=== PATIENT | female | born 1950 | race Caucasian/White ===

== ENCOUNTER → 2016-11-10 | Outpatient (CLI) | payer OTHER, MEDICARE ==
[~2016-11-10] MED LIST: ATEN-173 PO; CETI10TA10 PO; EFFSR150 PO; LPT/40 PO; LSN/10125 PO; OMEP20CA59 PO
[2016-11-10 12:24] LABS: BASO % 0.4 %; BASO ABS # 0.03 K/uL (0-0.2); COMPLETE YES; EOS % 1.3 %; HEMATOCRIT 40.3 % (37-47); IG% 0.4 %; LYMPH % 34.8 %; LYMPH ABS # 2.94 K/uL (1.2-3.4); MEAN CELL VOLUME 93.7 fL (80-100); MEAN CORPUSCULAR HEMOGLOBIN 30.5 pg (25-34); MEAN CORPUSCULAR HGB CONC 32.5 g/dl (32-36); MEAN PLATELET VOLUME 11.5 fL (7.4-10.4); MONO % 6.7 %; NEUT % 56.4 %; PLATELET COUNT 257 K/uL (130-400); WHITE BLOOD COUNT 8.45 K/uL (4.8-10.8)
[2016-11-10 13:05] LABS: ALKALINE PHOSPHATASE 61 U/L (45-117); ALT/SGPT 33 U/L (12-78); AST/SGOT 25 U/L (15-37); BLOOD UREA NITROGEN 44 mg/dl (7-18); BUN/CREATININE RATIO 33.9 (10-20); CARBON DIOXIDE 22 mmol/L (21-32); CHLORIDE 110 mmol/L (98-107); CHOLESTEROL 223 mg/dl (0-200); GLUCOSE 94 mg/dl (70-99); POTASSIUM 4.8 mmol/L (3.5-5.1); SODIUM 140 mmol/L (136-145); TRIGLYCERIDES 102 mg/dl (0-150); VERY LOW DENSITY LIPOPROT CALC 20 mg/dl
[2016-11-10 13:12] LABS: CALCIUM 9.1 mg/dl (8.5-10.1); CHOLESTEROL/HDL RATIO 3.8; HDL CHOLESTEROL 59 mg/dl; LDL CHOLESTEROL CALCULATED 144 mg/dl
[2016-11-10 13:20] LABS: ESTIMATED AVERAGE GLUCOSE 131 mg/dl; HA1C FLAG Normal (Normal)
--- NOTE | 2016-11-16 10:12 | CODING QUERY MEDICAL NECESSITY ---
SUPPORTING DIAGNOSIS NEEDED Dr. Abraham, A supporting diagnosis is required for the test/procedure performed on this patient in order for us to be reimbursed by the patient's insurance. Please provide a supporting diagnosis for the following test/procedure listed below next to the test name along with your signature. *If there is no additional diagnosis for this patient that would support the following test/procedure please document that below next to the test/procedure. Test(s)/Procedure(s) that require a supporting diagnosis: * 06642 GLYCATED HEMOGLOBIN DIAGNOSIS: DATE OF SERVICE: 11/10/16 Provider Signature: Date: Thank you Yonathan Barnard [facility] Information Management Once completed, please kindly fax back to [phone] For questions please call [phone]
== END | disposition home or self-care (01) ==
LOC: C.LABPBG 08:29
PROVIDERS: ATTEND Internal Medicine
DX: E55.9 Vitamin D deficiency, unspecified (principal); R73.01 Impaired fasting glucose

== ENCOUNTER → 2017-04-17 | Outpatient (CLI) | payer OTHER, MEDICARE ==
[2017-04-17 12:10] LABS: BLOOD UREA NITROGEN 32 mg/dl (7-18); BUN/CREATININE RATIO 28.5 (10-20); CALCIUM 9.6 mg/dl (8.5-10.1); CARBON DIOXIDE 25 mmol/L (21-32); CHLORIDE 107 mmol/L (98-107); CREATININE 1.12 mg/dl (0.60-1.20); GLUCOSE 85 mg/dl (70-99); POTASSIUM 4.7 mmol/L (3.5-5.1); SODIUM 138 mmol/L (136-145)
== END ==
LOC: C.LABPBG 09:48
PROVIDERS: ATTEND Internal Medicine
DX: N28.9 Disorder of kidney and ureter, unspecified (principal)

== ENCOUNTER → 2017-06-07 | Outpatient (CLI) | payer OTHER, MEDICARE | END | disposition home or self-care (01) | LOC: C.PATHSPEC 16:03 | PROVIDERS: ATTEND Physician Assistant | DX: L82.1 Other seborrheic keratosis (principal) ==

== ENCOUNTER → 2017-06-20 | Outpatient (CLI) | payer OTHER, MEDICARE ==
[2017-06-20 13:21] LABS: BLOOD UREA NITROGEN 18 mg/dl (7-18); CALCIUM 9.1 mg/dl (8.5-10.1); CARBON DIOXIDE 26 mmol/L (21-32); CREATININE 1.01 mg/dl (0.60-1.20); GLUCOSE 95 mg/dl (70-99); POTASSIUM 4.1 mmol/L (3.5-5.1); SODIUM 141 mmol/L (136-145)
== END | disposition home or self-care (01) ==
LOC: C.LABPBG 08:38
PROVIDERS: ATTEND Internal Medicine
DX: I10 Essential (primary) hypertension (principal)

== ENCOUNTER 2019-07-16 12:15 | Inpatient (IN) ==
--- NOTE | 2019-07-16 13:05 | XRay Report ---
XR chest 1V portable CLINICAL HISTORY: Dyspnea COMPARISON STUDY: 06/02/2019 dyspnea FINDINGS: 06/02/2019 IMPRESSION: Negative chest. ACT 112: Negative or not required by law. The above report was generated using voice recognition software. It may contain grammatical, syntax or spelling errors. Electronically signed by: Diogenes Lara M.D. 07/16/2019 1:04 PM
[2019-07-16 13:50] LABS: Allen Test Pos (Pos); HCO3 ABG 26 mmol/L (19-24); Oxygen Saturation ABG 94.2 % (90-95); PCO2 ABG 37 mmHg (35-46); PO2 ABG 109 mmHg (80-95); pH ABG 7.46 (7.35-7.45)
[2019-07-16 14:17] LABS: Basophils # (auto) 0.03 K/uL (0-0.2); Basophils % (auto) 0.4 %; Eosinophils % (auto) 2.8 %; Hematocrit (blood only) 37.5 % (37-47); Hemoglobin 11.6 g/dL (12.0-16.0); Immature Granulocytes # (auto) 0.02 K/uL (0.00-0.02); Immature Granulocytes % (auto) 0.3 %; Lymphocytes # (auto) 1.06 K/uL (1.2-3.4); Mean Corpuscular Hgb Conc 30.9 g/dL (32-36); Mean Corpuscular Volume 96.9 fL (80-100); Mean Platelet Volume 10.7 fL (7.4-10.4); Monocytes # (auto) 0.68 K/uL (0.11-0.59); Monocytes % (auto) 9.6 %; Neutrophils # (auto) 5.06 K/uL (1.4-6.5); Neutrophils % (auto) 71.9 %; Platelet Count 276 K/uL (130-400); RDW Coefficient of Variation 14.6 % (11.5-14.5); RDW Standard Deviation 50.1 fL (36.4-46.3); Red Blood Count 3.87 M/uL (4.2-5.4); White Blood Count 7.05 K/uL (4.8-10.8)
--- NOTE | 2019-07-16 14:22 | Emergency Department Note ---
Entered by Lisbeth Cleary acting as a scribe for Brodie Leonard MD ED Provider Note CHIEF COMPLAINT: Shortness of breath HISTORY OF PRESENT ILLNESS: The patient is a 69 year old female who presents to the Emergency Room with comp laints of persistent shortness of breath starting 1 week ago. The patient reports that she is short of breath. She states that her shortness of breath is worse in the morning when she wakes up. She explains that she is severely weak in the mornings. She notes that her often gets chills in the evening. She states that she had a headache last night. She adds that her oxygen saturation last night was 78% and that [employer] today it was 85% on room air. The patient reports that she is pale and thinks that she looks slightly yellow. She states that she had a CTA of her chest done yesterday. She explains that she had outpatient ab work done 5 days ago and believes that it was normal for her. She notes that she has a glioblastoma and receives radiation and chemotherapy specifically Temozolomide daily. She adds that she is following with Dr. Banegas oncologist for her cancer. The patient reports that she began radiation and chemotherapy for about 1.5 weeks ago. She states that she had about 85% of the visible portion of her glioblastoma removed in [place]. She notes that she follows with a [facility] PCP. Pt denies LOC, fevers, diaphoresis, visual changes, neck pain, chest pain, nausea, vomiting, abdominal pain, back pain, melena, hematochezia, urinary symptoms, numbness, lymphadenopathy, rash, or other complaints. REVIEW OF SYSTEMS: See HPI for pertinent positives and negatives. A total of ten systems were reviewed and were otherwise negative. PMHx/PSHx: See pertinent medical and surgical history lists. SOCIAL HISTORY: Patient lives at home. . Never smoker. PHYSICAL EXAM: GENERAL: Awake, alert, well-appearing, in no distress HENT: Normocephalic, atraumatic. Oropharynx unremarkable. EYES: PERRL. Normal conjunctiva. Sclera non-icteric. NECK: Inspection normal. Non-tender. Supple. No nuchal rigidity. FROM. No masses. RESPIRATORY: Clear to auscultation. No wheezes. No rales. Normal respiratory e ffort. CARDIAC: Normal rate. Normal rhythm. No murmurs. No rubs. Extremities warm and well perfused. Pulses equal. No JVD. GI: Soft, non-distended. No tenderness to palpation. No rebound or guarding. No masses. RECTAL: Deferred. MUSCULOSKELETAL: Atraumatic. Chest examination reveals no tenderness. The back is symmetrical on inspection without obvious abnormality. There is no CVA tenderness to palpation. No joint edema. LOWER EXTREMITIES: Calves are equal size bilaterally and non-tender. No edema. No discoloration. NEURO: Normal sensorium. No sensory or motor deficits noted. SKIN: Pale. No rash or jaundice noted. EMERGENCY DEPARTMENT COURSE: 1227: Past medical records reviewed. The patient was evaluated in room B5, and a complete history and physical examination were performed. 1400: I reevaluated the patient at this time. Stable 1545: Discussed case with Dr. Prasad of internal medicine. She will evaluate for further management. Patient reassessed and is stable. Feeling better after supplemental oxygen. MEDICAL DECISION MAKING: Prior records/ancillary studies reviewed. The patient had a negative CT PE study. Laboratory testing from 5 days ago did not reveal any significant abnormalities. Triage Nursing notes reviewed and agree them. Additional history obtained from the family. The patient's history was concerning for hypoxia, weakness, and shortness of breath. Differential diagnosis: Etiologies such as pneumonia, COPD, reactive airway disease, CHF, cardiac ischemia, pulmonary embolism, pneumothorax, musculoskeletal, infections, gastrointestinal, as well as others were entertained. Physical examination: As above. The patient had a pulse oximetry down into the 88% range. Responded well to supplemental nasal cannula oxygen. ER treatment provided: Supplemental oxygen On reassessment the patient felt better. Diagnostic interpretation by me: The electrocardiogram was negative for pathologic change. The labs revealed a mild anemia on CBC but not significantly different than prior. ABG did not reveal any gross abnormalities. Troponin and BNP negative. Imaging studies: Chest x-ray negative. The patient has hypoxia. She is doing better with supplemental oxygen. The exact etiology is not known at this time. Consultation: A consultation was placed with the hospitalist. The case was discussed and diagnostics were reviewed. The patient was evaluated in the ER for further tr eatment. IMPRESSION: Hypoxia, Weakness PLAN: Admitted The scribe's documentation has been prepared under my direction and personally reviewed by me in its entirety. I confirm that the note above accurately refl ects all work, treatment, procedures, and medical decision making performed by me. Impression & Plan Hypoxia, Weakness Past Med/Surg History Medical History Acid reflux Acute renal insufficiency Anxiety Arthritis Chronic sinusitis Depression GBM (glioblastoma multiforme) 06/06/2019 Glaucoma HTN (hypertension) Hyperlipidemia Mitral valve prolapse syndrome Obsessive compulsive disorder Osteoporosis Prediabetes Psoriasis Seasonal allergies Vitamin D deficiency Surgical History H/O total hysterectomy with bilateral salpingo-oophorectomy (BSO) History of appendectomy Hx of cataract surgery Bilateral S/P craniotomy (06/06/19) Left craniotomy with mass resection, Dr. Grimaldo at [facility] S/P hip arthroscopy Right hip, bursectomy Left hip, bursectomy S/P tonsillectomy Family History Mother , 81yo COPD (chronic obstructive pulmonary disease) Osteoporosis Father , 66yo Cardiac disorder Prostate cancer Myocardial infarction Grandfather (Maternal) Diabetes Son Prediabetes Brother No problems noted. Brother No problems noted. Sister No problems noted. Sister No problems noted. Sister No problems noted. Son Hypertension Daughter No problems noted. 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 Feels Safe at Home: Yes Smoking Status: Never smoker Hx Alcohol Use: No Hx Substance Use: No Childhood Exposure to Second-Hand Smoke: No caffeine: Yes (2 cups/day) during the past year weight has: remained stable Dental Care, Regularly: Yes Physical Activity Frequency: Does not Exercise Seatbelt Use: always Sunscreen Use: Yes Results & Data Vital Signs Vital Signs - 24 hr 07/16/19 12:21 07/16/19 12:38 07/16/19 14:03 Temperature 36.9 C Temperature Source Oral Pulse Rate 102 H Pulse Rate [Apical] 82 Respiratory Rate 20 18 Respiratory Effort / Characteristics Non-Labored Respiratory Depth Normal Blood Pressure 110/75 Blood Pressure [Right Arm] Blood Pressure Mean 86 Blood Pressure Mean [Right Arm] Pulse Oximetry 92 90 94 Oxygen Delivery Method Room Air Room Air Nasal Cannula Oxygen Flow Rate 2 Sepsis Recent Fever Within 48 Hours No Sepsis Action Taken by Nursing No Action Required 07/16/19 15:25 07/16/19 15:47 Temperature Temperature Source Pulse Rate Pulse Rate [Apical] 90 100 H Respiratory Rate 18 18 Respiratory Effort / Characteristics Respiratory Depth Normal Blood Pressure Blood Pressure [Right Arm] 170/92 H 141/74 H Blood Pressure Mean Blood Pressure Mean [Right Arm] 118 96 Pulse Oximetry 90 91 Oxygen Delivery Method Nasal Cannula Nasal Cannula Oxygen Flow Rate 2 2 Sepsis Recent Fever Within 48 Hours Sepsis Action Taken by Care Home Medications Current Medication List: was personally reviewed by me Laboratory Data Attestation: I reviewed the patient's lab results. Result diagrams: 07/16/19 14:01 07/16/19 14:01 Lab Results 07/16/19 07/16/19 07/16/19 Range/Units 13:34 13:36 14:01 WBC 7.05 (4.8-10.8) K/uL RBC 3.87 L (4.2-5.4) M/uL Hgb 11.6 L (12.0-16.0) g/dL Hct 37.5 (37-47) % MCV 96.9 (80-100) fL MCH 30.0 (25-34) pg MCHC 30.9 L (32-36) g/dL RDW Std Deviation 50.1 H (36.4-46.3) fL RDW Coeff of Flaca 14.6 H (11.5-14.5) % Plt Count 276 (130-400) K/uL MPV 10.7 H (7.4-10.4) fL Immature Gran % (Auto) 0.3 % Neut % (Auto) 71.9 % Lymph % (Auto) 15.0 % [place] % (Auto) 9.6 % Eos % (Auto) 2.8 % Baso % (Auto) 0.4 % Immature Gran # (Auto) 0.02 (0.00-0.02) K/uL Neut # (Auto) 5.06 (1.4-6.5) K/uL Lymph # (Auto) 1.06 L (1.2-3.4) K/uL [place] # (Auto) 0.68 H (0.11-0.59) K/uL Eos # (Auto) 0.20 (0-0.5) K/uL Baso # (Auto) 0.03 (0-0.2) K/uL PT Cancelled INR Cancelled APTT Cancelled PTT Ratio Cancelled ABG pH 7.46 H (7.35-7.45) ABG pCO2 37 (35-46) mmHg ABG pO2 109 H (80-95) mmHg ABG HCO3 26 H (19-24) mmol/L ABG O2 Saturation 94.2 (90-95) % ABG Base Excess 2.0 H (-9-1.8) mEq/L Jadiel Test Pos (Pos) Barometric Pressure 738.9 mm/Hg Oxygen Given 2 L Sodium (136-145) mmol/L Potassium (3.5-5.1) mmol/L Chloride (98-107) mmol/L Carbon Dioxide (21-32) mmol/L Anion Gap (3-11) BUN (7-18) mg/dl Creatinine (0.6-1.2) mg/dl Est Cr Clr Drug Dosing ml/min Est GFR ( Amer) Est GFR (Non-Af Amer) BUN/Creatinine Ratio (10-20) Glucose (70-99) mg/dl Calcium (8.5-10.1) mg/dl Magnesium (1.8-2.4) mg/dl Total Bilirubin (0.2-1) mg/dl AST (15-37) U/L ALT (12-78) U/L Alkaline Phosphatase (45-117) U/L Troponin I (0-0.045) ng/ml NT-Pro-B Natriuret Pep (0-900) pg/ml Total Protein (6.4-8.2) gm/dl Albumin (3.4-5.0) gm/dl Globulin (2.5-4.0) gm/dl Albumin/Globulin Ratio (0.9-2) Blood Type Antibody Screen 07/16/19 07/16/19 Range/Units 14:01 14:01 WBC (4.8-10.8) K/uL RBC (4.2-5.4) M/uL Hgb (12.0-16.0) g/dL Hct (37-47) % MCV (80-100) fL MCH (25-34) pg MCHC (32-36) g/dL RDW Std Deviation (36.4-46.3) fL RDW Coeff of Flaca (11.5-14.5) % Plt Count (130-400) K/uL MPV (7.4-10.4) fL Immature Gran % (Auto) % Neut % (Auto) % Lymph % (Auto) % [place] % (Auto) % Eos % (Auto) % Baso % (Auto) % Immature Gran # (Auto) (0.00-0.02) K/uL Neut # (Auto) (1.4-6.5) K/uL Lymph # (Auto) (1.2-3.4) K/uL [place] # (Auto) (0.11-0.59) K/uL Eos # (Auto) (0-0.5) K/uL Baso # (Auto) (0-0.2) K/uL PT INR APTT PTT Ratio ABG pH (7.35-7.45) ABG pCO2 (35-46) mmHg ABG pO2 (80-95) mmHg ABG HCO3 (19-24) mmol/L ABG O2 Saturation (90-95) % ABG Base Excess (-9-1.8) mEq/L Jadiel Test (Pos) Barometric Pressure mm/Hg Oxygen Given Sodium 140 (136-145) mmol/L Potassium 4.0 (3.5-5.1) mmol/L Chloride 108 H (98-107) mmol/L Carbon Dioxide 26 (21-32) mmol/L Anion Gap 6.0 (3-11) BUN 15 (7-18) mg/dl Creatinine 1.05 (0.6-1.2) mg/dl Est Cr Clr Drug Dosing 51.0 ml/min Est GFR ( Amer) 62.8 Est GFR (Non-Af Amer) 54.1 BUN/Creatinine Ratio 14.5 (10-20) Glucose 69 L (70-99) mg/dl Calcium 9.0 (8.5-10.1) mg/dl Magnesium 2.1 (1.8-2.4) mg/dl Total Bilirubin 1.1 H (0.2-1) mg/dl AST 20 (15-37) U/L ALT 17 (12-78) U/L Alkaline Phosphatase 85 (45-117) U/L Troponin I < 0.015 (0-0.045) ng/ml NT-Pro-B Natriuret Pep 175 (0-900) pg/ml Total Protein 6.9 (6.4-8.2) gm/dl Albumin 3.6 (3.4-5.0) gm/dl Globulin 3.3 (2.5-4.0) gm/dl Albumin/Globulin Ratio 1.1 (0.9-2) Blood Type A Negative Antibody Screen NEGATIVE Imaging Data Radiologist's Impression: Radiology results as stated below per my review and the radiologist's interpretation: XR chest 1V portable CLINICAL HISTORY: Dyspnea COMPARISON STUDY: 06/02/2019 dyspnea FINDINGS: 06/02/2019 IMPRESSION: Negative chest. ACT 112: Negative or not required by law. The above report was generated using voice recognition software. It may contain grammatical, syntax or spelling errors. Electronically signed by: Diogenes Lara M.D. 07/16/2019 1:04 PM ECG Data Attestation: I personally reviewed and interpreted this ECG as follows: Indication: + SOB/dyspnea Rate (beats per minute): 89 Rhythm: normal sinus ECG Intervals/blocks: + Normal QRS ECG [place]: + Normal ECG ST segments: no ST depression and no ST elevation ECG Findings: no PACs and no PVCs Blood Pressure Blood Pressure Findings: Low blood pressure Blood Pressure Disposition: Referred to patients primary care provider Discharge Plan Visit Data Chief Complaint: Referred by Doctor Stated Complaint: REFERRED BY DR PALACIOS Provider: Brodie Leonard Discharge Problem: Hypoxia, Weakness Forms Stand Alone Forms: My [facility] [place] Prescriptions Prescriptions: No Action acetaminophen [Tylenol] 325 mg capsule 650 mg PO Q4H PRN (Reason: Pain) RF: 0 venlafaxine [Effexor XR] 150 mg capsule,extended release 24hr 150 mg PO DAILY RF: 0 cholecalciferol (vitamin D3) 2,000 unit tablet 2,000 units PO DAILY RF: 0 dapsone 25 mg tablet 25 mg PO BID RF: 0 docusate sodium [Colace] 100 mg capsule 100 mg PO DAILY RF: 0 ondansetron HCl [Zofran] 8 mg tablet 8 mg PO DAILY RF: 0 temozolomide [Temodar] 140 mg capsule 130 mg PO DAILY RF: 0 atorvastatin 40 mg tablet 40 mg PO QPM Qty: 90 RF: 1 atenolol 25 mg tablet 25 mg PO QPM Qty: 90 RF: 1 venlafaxine 75 mg capsule,extended release 24hr 75 mg PO DAILY Qty: 30 RF: 5 latanoprost 0.005 % drops 1 drops OP DAILY RF: 0 cetirizine 10 mg capsule 10 mg PO DAILY RF: 0 omeprazole 20 mg capsule,delayed release(DR/EC) 20 mg PO DAILY RF: 0 The scribe's documentation has been prepared under my direction and personally reviewed by me in its entirety. I confirm that the note above accurately reflects all work, treatment, procedures, and medical decision making performed by me.
[2019-07-16 14:36] LABS: Alanine Aminotransferase 17 U/L (12-78); Albumin Level 3.6 gm/dl (3.4-5.0); Aspartate Aminotransferase 20 U/L (15-37); BUN Creatinine Ratio 14.5 (10-20); Blood Urea Nitrogen 15 mg/dl (7-18); Carbon Dioxide 26 mmol/L (21-32); Chloride 108 mmol/L (98-107); Est GFR (African American) 62.8; Est GFR (Non-African American) 54.1; Glucose 69 mg/dl (70-99); Magnesium 2.1 mg/dl (1.8-2.4); Sodium 140 mmol/L (136-145)
[2019-07-16 14:39] LABS: Albumin Globulin Ratio 1.1 (0.9-2); Alkaline Phosphatase 85 U/L (45-117); Bilirubin,Total 1.1 mg/dl (0.2-1); Globulin 3.3 gm/dl (2.5-4.0); NT Pro B Type Natriuretic Pept 175 pg/ml (0-900); Total Protein 6.9 gm/dl (6.4-8.2); Troponin I < 0.015 ng/ml (0-0.045)
--- NOTE | 2019-07-16 16:25 | History & Physical Report ---
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 Patient with hypoxia at rest, sat urations in the 80s on room air. Symptoms ongoing for least 1 week, associated with fatigue, weakness and occasional presyncope. Presently on 2 L saturating 90 to 91% however, she does drop to 88% occasionally. She denies cough/sputum. Does experience palpitations when her oxygen level is low as well as some chest tightness. CT was performed in the outpatient setting which was negative for PE , and otherwise unremarkable. She has been on dapsone 25 mg p.o. twice daily for PCP prophylaxis. She has a slight decrease in her hemoglobin to 11.6 which is most likely not a factor in patient's current hypoxia. Admit to medical floor -Continuous pulse oximetry, supplemental oxygen as needed to maintain saturations greater than 92% Check ambulatory saturation, patient will need to be set up for home oxygen We will check LDH level although doubt PCP pneumonia Check phosphorus level -2D echo Present on Admission?: Yes (2) Weakness: Patient experiences episodes of fatigue and weakness while her oxygen level is low. Treatment as above Present on Admission?: Yes (3) GBM (glioblastoma multiforme): Recently diagnosed, status post craniotomy on 06/06/2019. Presently on radiation therapy daily (scheduled for tomorrow at 11:00). On Temodar 130 mg p.o. daily. Overall patient feels she is doing quite well. She is very pleasant and in high spirits. -Continue Temodar 130 mg p.o. nightly Continue dapsone 25 mg p.o. twice daily (4) Hypertension: Blood pressure stable at present. Patient was previously on lisinopril in addition to atenolol. However, she was having some low blood pressures in the morning and has recently discontinued her lisinopril. PCP aware of this change and in agreement. Blood pressure presently stable Continue atenolol 25 mg p.o. every afternoon Continue to monitor Present on Admission?: Yes (5) Acid reflux: Chronic. Stable. Continue omeprazole 20 mg. Present on Admission?: Yes (6) Chronic sinusitis: Chronic. Well-controlled. Cetirizine 10 mg p.o. daily Present on Admission?: Yes (7) Depression: Chronic. Well-controlled. Continue Effexor Present on Admission?: Yes (8) Hyperlipidemia: Chronic. Stable. Continue atorvastatin Present on Admission?: Yes (9) Vitamin D deficiency: Chronic. Continue vitamin D supplementation F/E/NHep-Lock, monitor electrolytes, regular diet as tolerated ProphylaxisLovenox for DVT prophylaxis Codefull per discussion with patient, daughter at bedside Dispositionadmit to medical floor, continuous pulse ox monitoring and supplemental O2 History of Present Illness Chief Complaint: hypoxia Primary Care Provider: Libra Connolly DO Kimmy Shimmel is a 69-year-old female with history of recently diagnosed glioblastoma multiform status post left frontal craniotomy with fluorescence guided resection of the mass performed at [facility] on 06/06/2019, presently undergoing radiation therapy and Temodar therapy. Patient reports over the last 1 to 2 weeks she has been having episodes of lightheadedness, shortness of breath and presyncope. She was monitoring her saturations at home using a home oximeter and reported episodes of hypoxemia, saturations as low as 78% at times. Patient was instructed to come to the ER today for additional work-up and treatment of hypoxemia. Additionally, her blood pressures been low in the mornings. She was previously on lisinopril which is since been discontinued. She reports feeling short of breath and fatigued. She experiences palpitations and left-sided chest discomfort when her oxygen saturations are low. She denies fever/chills/cough/orthopnea/edema/weight gain. No hemoptysis. No sick contacts or recent travel. Patient hemodynamically stable in the ER. Variable pulse ox ranging 88 to 94% while on 2 L nasal cannula. Saturations decreased when patient is speaking. No decrease saturation with standing or leaning forward. She occasionally snores. Allergies Allergy/AdvReac Type Severity Reaction Status Date / Time Penicillins Allergy Unknown HIVES Verified 07/16/19 13:13 Sulfa (Sulfonamide Allergy Unknown HIVES Verified 07/16/19 13:13 Antibiotics) Home Medications Home Medications Medication Instructions Recorded Confirmed Type atorvastatin 40 mg tablet 40 mg PO QPM #90 tab 02/28/19 07/16/19 Rx atenolol 25 mg tablet 25 mg PO QPM #90 tab 06/11/19 07/16/19 Rx acetaminophen 325 mg capsule 650 mg PO Q4H PRN cap 06/20/19 07/16/19 History cholecalciferol (vitamin D3) 50 2,000 units PO DAILY 06/20/19 07/16/19 History mcg (2,000 unit) tablet latanoprost 0.005 % eye drops 1 drops OP DAILY ml 06/20/19 07/16/19 History venlafaxine 150 mg 150 mg PO DAILY 06/20/19 07/16/19 History capsule,extended release 24 hr dapsone 25 mg tablet 25 mg PO BID tab 07/07/19 07/16/19 History docusate sodium 100 mg capsule 100 mg PO DAILY 07/07/19 07/16/19 History ondansetron HCl 8 mg tablet 8 mg PO DAILY tab 07/07/19 07/16/19 History cetirizine 10 mg capsule 10 mg PO DAILY cap 07/10/19 07/16/19 History venlafaxine 75 mg capsule,extended 75 mg PO DAILY #30 cap 07/11/19 07/16/19 Rx release 24 hr temozolomide 140 mg capsule 130 mg PO DAILY cap 07/14/19 07/16/19 History omeprazole 20 mg PO DAILY 07/16/19 07/16/19 History Past Med/Surg History Medical History Acid reflux Acute renal insufficiency Anxiety Arthritis Chronic sinusitis Depression GBM (glioblastoma multiforme) 06/06/2019 Glaucoma HTN (hypertension) Hyperlipidemia Mitral valve prolapse syndrome Obsessive compulsive disorder Osteoporosis Prediabetes Psoriasis Seasonal allergies Vitamin D deficiency Surgical History H/O total hysterectomy with bilateral salpingo-oophorectomy (BSO) History of appendectomy Hx of cataract surgery Bilateral S/P craniotomy (06/06/19) Left craniotomy with mass resection, Dr. Grimaldo at [facility] [place] S/P hip arthroscopy Right hip, bursectomy Left hip, bursectomy S/P tonsillectomy Family History Mother , 81yo COPD (chronic obstructive pulmonary disease) Osteoporosis Father , 66yo Cardiac disorder Prostate cancer Myocardial infarction Grandfather (Maternal) Diabetes Son Prediabetes Brother No problems noted. Brother No problems noted. Sister No problems noted. Sister No problems noted. Sister No problems noted. Son Hypertension Daughter No problems noted. 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 Other Information That Helps Us Care for You: No Feels Safe at Home: Yes Safety Concerns: Feels Safe At This Time Smoking Status: Never smoker Hx Alcohol Use: No Hx Substance Use: No Childhood Exposure to Second-Hand Smoke: No caffeine: Yes (2 cups/day) during the past year weight has: remained stable Dental Care, Regularly: Yes Physical Activity Frequency: Does not Exercise Seatbelt Use: always Sunscreen Use: Yes Review of Systems Review of Systems: All systems reviewed & are unremarkable except as noted in HPI & below Physical Exam Physical Exam: General: patient resting comfortably, NAD, non-toxic in appearance, AA&O x 4 Skin: warm, dry, intact, no rashes or lesions, HEENT: NC/AT, PERRL, EOMI, anicteric sclera, conjunctiva without injection, external ear normal to inspection and nontender, nares patent, moist mucus membranes, dentition intact, no oropharyngeal lesions, neck supple, trachea midline, no LAD, no thyromegaly, no JVD Heart: +S1/S2, regular, no m/r/g Lungs: equal air entry bilaterally, no rales/rhonchi/wheezes Abd: +BS, soft, NT/ND, no masses/organomegaly/ascites Ext: warm, 2+ pulses in UE/LE bilaterally, no clubbing/cyanosis or edema Neuro: nonfocal, patient AA&O x 4, speech intact, no facial droop, moving all extremities on command with equal strength 5/5 Results & Data Vital Signs (Past 12 Hours) Vital Signs Temp Pulse Pulse Resp BP BP Pulse Ox 07/16/19 15:47 100 H 18 141/74 H 91 07/16/19 15:25 90 18 170/92 H 90 07/16/19 14:03 82 18 94 02/19/20 12:38 90 07/16/19 12:21 36.9 C 102 H 20 110/75 92 Laboratory Results Lab Results 07/16/19 07/16/19 07/16/19 Range/Units 13:34 13:36 14:01 WBC 7.05 (4.8-10.8) K/uL RBC 3.87 L (4.2-5.4) M/uL Hgb 11.6 L (12.0-16.0) g/dL Hct 37.5 (37-47) % MCV 96.9 (80-100) fL MCH 30.0 (25-34) pg MCHC 30.9 L (32-36) g/dL RDW Std Deviation 50.1 H (36.4-46.3) fL RDW Coeff of Flaca 14.6 H (11.5-14.5) % Plt Count 276 (130-400) K/uL MPV 10.7 H (7.4-10.4) fL Immature Gran % (Auto) 0.3 % Neut % (Auto) 71.9 % Lymph % (Auto) 15.0 % [place] % (Auto) 9.6 % Eos % (Auto) 2.8 % Baso % (Auto) 0.4 % Immature Gran # (Auto) 0.02 (0.00-0.02) K/uL Neut # (Auto) 5.06 (1.4-6.5) K/uL Lymph # (Auto) 1.06 L (1.2-3.4) K/uL [place] # (Auto) 0.68 H (0.11-0.59) K/uL Eos # (Auto) 0.20 (0-0.5) K/uL Baso # (Auto) 0.03 (0-0.2) K/uL PT Cancelled INR Cancelled APTT Cancelled PTT Ratio Cancelled ABG pH 7.46 H (7.35-7.45) ABG pCO2 37 (35-46) mmHg ABG pO2 109 H (80-95) mmHg ABG HCO3 26 H (19-24) mmol/L ABG O2 Saturation 94.2 (90-95) % ABG Base Excess 2.0 H (-9-1.8) mEq/L Jadiel Test Pos (Pos) Barometric Pressure 738.9 mm/Hg Oxygen Given 2 L Sodium (136-145) mmol/L Potassium (3.5-5.1) mmol/L Chloride (98-107) mmol/L Carbon Dioxide (21-32) mmol/L Anion Gap (3-11) BUN (7-18) mg/dl Creatinine (0.6-1.2) mg/dl Est Cr Clr Drug Dosing ml/min Est GFR ( Amer) Est GFR (Non-Af Amer) BUN/Creatinine Ratio (10-20) Glucose (70-99) mg/dl Calcium (8.5-10.1) mg/dl Phosphorus (2.5-4.9) mg/dl Magnesium (1.8-2.4) mg/dl Total Bilirubin (0.2-1) mg/dl AST (15-37) U/L ALT (12-78) U/L Alkaline Phosphatase (45-117) U/L Lactate Dehydrogenase (84-246) U/L Troponin I (0-0.045) ng/ml NT-Pro-B Natriuret Pep (0-900) pg/ml Total Protein (6.4-8.2) gm/dl Albumin (3.4-5.0) gm/dl Globulin (2.5-4.0) gm/dl Albumin/Globulin Ratio (0.9-2) Urine Color Urine Appearance (Clear) Urine pH (4.5-7.5) Ur Specific [place] (1.000-1.030) Urine Protein (Negative) Urine Glucose (UA) (Negative) Urine Ketones (Negative) Urine Blood (Negative) Urine Nitrite (Negative) Urine Bilirubin (Negative) Urine Urobilinogen (Negative) Ur Leukocyte Esterase (Negative) Urine WBC (Auto) (0-5) /hpf Urine RBC (Auto) (0-4) /hpf U Hyaline Cast (Auto) (0-5) /lpf U Epithel Cells (Auto) (0-5) /lpf Urine Bacteria (Auto) (Negative) Blood Type Antibody Screen 07/16/19 07/16/19 07/16/19 Range/Units 14:01 14:01 17:36 WBC (4.8-10.8) K/uL RBC (4.2-5.4) M/uL Hgb (12.0-16.0) g/dL Hct (37-47) % MCV (80-100) fL MCH (25-34) pg MCHC (32-36) g/dL RDW Std Deviation (36.4-46.3) fL RDW Coeff of Flaca (11.5-14.5) % Plt Count (130-400) K/uL MPV (7.4-10.4) fL Immature Gran % (Auto) % Neut % (Auto) % Lymph % (Auto) % [place] % (Auto) % Eos % (Auto) % Baso % (Auto) % Immature Gran # (Auto) (0.00-0.02) K/uL Neut # (Auto) (1.4-6.5) K/uL Lymph # (Auto) (1.2-3.4) K/uL [place] # (Auto) (0.11-0.59) K/uL Eos # (Auto) (0-0.5) K/uL Baso # (Auto) (0-0.2) K/uL PT INR APTT PTT Ratio ABG pH (7.35-7.45) ABG pCO2 (35-46) mmHg ABG pO2 (80-95) mmHg ABG HCO3 (19-24) mmol/L ABG O2 Saturation (90-95) % ABG Base Excess (-9-1.8) mEq/L Jadiel Test (Pos) Barometric Pressure mm/Hg Oxygen Given Sodium 140 (136-145) mmol/L Potassium 4.0 (3.5-5.1) mmol/L Chloride 108 H (98-107) mmol/L Carbon Dioxide 26 (21-32) mmol/L Anion Gap 6.0 (3-11) BUN 15 (7-18) mg/dl Creatinine 1.05 (0.6-1.2) mg/dl Est Cr Clr Drug Dosing 51.0 ml/min Est GFR ( Amer) 62.8 Est GFR (Non-Af Amer) 54.1 BUN/Creatinine Ratio 14.5 (10-20) Glucose 69 L (70-99) mg/dl Calcium 9.0 (8.5-10.1) mg/dl Phosphorus (2.5-4.9) mg/dl Magnesium 2.1 (1.8-2.4) mg/dl Total Bilirubin 1.1 H (0.2-1) mg/dl AST 20 (15-37) U/L ALT 17 (12-78) U/L Alkaline Phosphatase 85 (45-117) U/L Lactate Dehydrogenase 250 H (84-246) U/L Troponin I < 0.015 (0-0.045) ng/ml NT-Pro-B Natriuret Pep 175 (0-900) pg/ml Total Protein 6.9 (6.4-8.2) gm/dl Albumin 3.6 (3.4-5.0) gm/dl Globulin 3.3 (2.5-4.0) gm/dl Albumin/Globulin Ratio 1.1 (0.9-2) Urine Color Urine Appearance (Clear) Urine pH (4.5-7.5) Ur Specific [place] (1.000-1.030) Urine Protein (Negative) Urine Glucose (UA) (Negative) Urine Ketones (Negative) Urine Blood (Negative) Urine Nitrite (Negative) Urine Bilirubin (Negative) Urine Urobilinogen (Negative) Ur Leukocyte Esterase (Negative) Urine WBC (Auto) (0-5) /hpf Urine RBC (Auto) (0-4) /hpf U Hyaline Cast (Auto) (0-5) /lpf U Epithel Cells (Auto) (0-5) /lpf Urine Bacteria (Auto) (Negative) Blood Type A Negative Antibody Screen NEGATIVE 07/16/19 07/16/19 Range/Units 17:36 18:47 WBC (4.8-10.8) K/uL RBC (4.2-5.4) M/uL Hgb (12.0-16.0) g/dL Hct (37-47) % MCV (80-100) fL MCH (25-34) pg MCHC (32-36) g/dL RDW Std Deviation (36.4-46.3) fL RDW Coeff of Flaca (11.5-14.5) % Plt Count (130-400) K/uL MPV (7.4-10.4) fL Immature Gran % (Auto) % Neut % (Auto) % Lymph % (Auto) % [place] % (Auto) % Eos % (Auto) % Baso % (Auto) % Immature Gran # (Auto) (0.00-0.02) K/uL Neut # (Auto) (1.4-6.5) K/uL Lymph # (Auto) (1.2-3.4) K/uL [place] # (Auto) (0.11-0.59) K/uL Eos # (Auto) (0-0.5) K/uL Baso # (Auto) (0-0.2) K/uL PT INR APTT PTT Ratio ABG pH (7.35-7.45) ABG pCO2 (35-46) mmHg ABG pO2 (80-95) mmHg ABG HCO3 (19-24) mmol/L ABG O2 Saturation (90-95) % ABG Base Excess (-9-1.8) mEq/L Jadiel Test (Pos) Barometric Pressure mm/Hg Oxygen Given Sodium (136-145) mmol/L Potassium (3.5-5.1) mmol/L Chloride (98-107) mmol/L Carbon Dioxide (21-32) mmol/L Anion Gap (3-11) BUN (7-18) mg/dl Creatinine (0.6-1.2) mg/dl Est Cr Clr Drug Dosing ml/min Est GFR ( Amer) Est GFR (Non-Af Amer) BUN/Creatinine Ratio (10-20) Glucose (70-99) mg/dl Calcium (8.5-10.1) mg/dl Phosphorus 3.4 (2.5-4.9) mg/dl Magnesium (1.8-2.4) mg/dl Total Bilirubin (0.2-1) mg/dl AST (15-37) U/L ALT (12-78) U/L Alkaline Phosphatase (45-117) U/L Lactate Dehydrogenase (84-246) U/L Troponin I (0-0.045) ng/ml NT-Pro-B Natriuret Pep (0-900) pg/ml Total Protein (6.4-8.2) gm/dl Albumin (3.4-5.0) gm/dl Globulin (2.5-4.0) gm/dl Albumin/Globulin Ratio (0.9-2) Urine Color Dark Yellow Urine Appearance Clear (Clear) Urine pH 6.0 (4.5-7.5) Ur Specific [place] 1.030 (1.000-1.030) Urine Protein 1+ H (Negative) Urine Glucose (UA) Negative (Negative) Urine Ketones Trace H (Negative) Urine Blood Negative (Negative) Urine Nitrite Positive A (Negative) Urine Bilirubin Negative (Negative) Urine Urobilinogen Positive H (Negative) Ur Leukocyte Esterase Trace H (Negative) Urine WBC (Auto) 5-10 H (0-5) /hpf Urine RBC (Auto) 0-4 (0-4) /hpf U Hyaline Cast (Auto) 1-5 (0-5) /lpf U Epithel Cells (Auto) >30 H (0-5) /lpf Urine Bacteria (Auto) Negative (Negative) Blood Type Antibody Screen Diagnostic Findings XR chest 1V portable CLINICAL HISTORY: Dyspnea COMPARISON STUDY: 06/02/2019 dyspnea FINDINGS: 06/02/2019 IMPRESSION: Negative chest. ACT 112: Negative or not required by law. The above report was generated using voice recognition software. It may contain grammatical, syntax or spelling errors. Electronically signed by: Diogenes Lara M.D. 07/16/2019 1:04 PM Dictated: 07/16/19 1302 Transcribed: 07/16/19 1302 ECG Additional Comments: Study shows normal sinus rhythm at 89 bpm, normal axis, MO = 138, QRS = 74, QTc = 433, normal waveforms, no evidence of acute ischemia Code Status & VTE Plan Code Status Full code per discussion with patient VTE Prophylaxis Plan VTE Prophylaxis will be ordered: Yes PG Care Time/CCT Total # of Minutes Spent Total Time Spent with Patient: Total time spent is greater than 50% in coordination of care (as documented) at patient's floor/unit and/or counseling patient: Coding Level of Care Code 86713 Initial Inpt Care Lvl 3 Diagnoses Hypoxia R09.02 Weakness R53.1 GBM (glioblastoma multiforme) C71.9 Hypertension I10 Hypertension type: essential hypertension Acid reflux K21.9 Esophagitis presence: esophagitis presence not specified Chronic sinusitis J32.9 Sinusitis location: unspecified location Depression F33.9 Active/Remission status: remission status unspecified Depression Type: major depressive disorder Major depression recurrence: recurrent Hyperlipidemia E78.5 Hyperlipidemia type: unspecified Vitamin D deficiency E55.9 (1) Depression Active/Remission status: remission status unspecified Depression Type: major depressive disorder Major depression recurrence: recurrent Qualified Code(s): F33.9 - Major depressive disorder, recurrent, unspecified (2) Hyperlipidemia Hyperlipidemia type: unspecified Qualified Code(s): E78.5 - Hyperlipidemia, unspecified (3) Acid reflux Esophagitis presence: esophagitis presence not specified Qualified Code(s): K21.9 - Gastro-esophageal reflux disease without esophagitis (4) Hypertension Hypertension type: essential hypertension Qualified Code(s): I10 - Essential (primary) hypertension (5) Chronic sinusitis Sinusitis location: unspecified location Qualified Code(s): J32.9 - Chronic sinusitis, unspecified
[2019-07-16] MEDS ORDERED: ACETAMINOPHEN 325 MG TAB PO PRN ×2 (17:15)
[2019-07-16] MEDS: ENOXAPARIN INJ 40 MG/0.4 ML SYR SQ SCH (18:34)
[2019-07-16] MEDS: ONDANSETRON INJ 2 MG/ML 2 ML VIAL IV PRN (19:01)
[2019-07-16 19:39] LABS: Appearance Urine Clear (Clear); Bacteria Urine Automated Negative (Negative); Blood Urine Negative (Negative); Color Urine Dark Yellow; Epithelial Cell Urine Auto >30 /lpf (0-5); Glucose Urine UA Negative (Negative); Ketones Urine Trace (Negative); Leukocyte Esterase Urine Trace (Negative); Nitrite Urine Positive (Negative); Protein Urine 1+ (Negative); RBC Urine Automated 0-4 /hpf (0-4); Urobilinogen Urine Positive (Negative)
[2019-07-16 19:40] LABS: Bilirubin Urine Negative (Negative); Ictotest Urine Negative (Negative)
[2019-07-16] MEDS: DAPSONE 25 MG TAB PO SCH (20:52)
[2019-07-16] MEDS: ATORVASTATIN 40 MG TAB PO SCH (20:54)
[2019-07-16] MEDS: TEMOZOLOMIDE 20 MG CAPSULE PO SCH (20:55)
[2019-07-16] MEDS: ATENOLOL 25 MG TABLET PO SCH (20:56)
[2019-07-16] MEDS: CIPROFLOXACIN 250 MG TAB PO SCH (20:59)
[2019-07-16] MEDS ORDERED: TEMOZOLOMIDE 100 MG CAPSULE PO SCH (21:00)
[2019-07-16] MEDS: TEMOZOLOMIDE 5 MG CAPSULE PO SCH (21:18)
[2019-07-16] MEDS: TEMOZOLOMIDE 100 MG CAPSULE PO SCH (21:19)
--- NOTE | 2019-07-17 06:14 | Electrocardiogram Report ---
Test Reason : Blood Pressure : / mmHG Vent. Rate : 089 BPM Atrial Rate : 089 BPM P-R Int : 138 ms QRS Dur : 074 ms QT Int : 356 ms P-R-T Axes : 012 025 063 degrees QTc Int : 433 ms Normal sinus rhythm Normal ECG When compared with ECG of 02-JUN-2019 20:47, No significant change was found Confirmed by Isaac Cleaning ([id number]) on 07/17/2019 6:14:42 AM Referred By: Confirmed By:Isaac Cleaning
[2019-07-17 07:02] LABS: Basophils # (auto) 0.02 K/uL (0-0.2); Basophils % (auto) 0.3 %; Eosinophils # (auto) 0.22 K/uL (0-0.5); Eosinophils % (auto) 3.3 %; Hematocrit (blood only) 32.6 % (37-47); Hemoglobin 10.1 g/dL (12.0-16.0); Immature Granulocytes # (auto) 0.01 K/uL (0.00-0.02); Immature Granulocytes % (auto) 0.2 %; Lymphocytes # (auto) 1.08 K/uL (1.2-3.4); Lymphocytes % (auto) 16.3 %; Mean Corpuscular Hemoglobin 30.3 pg (25-34); Mean Corpuscular Volume 97.9 fL (80-100); Mean Platelet Volume 10.6 fL (7.4-10.4); Monocytes # (auto) 0.72 K/uL (0.11-0.59); Monocytes % (auto) 10.8 %; Neutrophils # (auto) 4.59 K/uL (1.4-6.5); Neutrophils % (auto) 69.1 %; Platelet Count 266 K/uL (130-400); RDW Coefficient of Variation 14.8 % (11.5-14.5); RDW Standard Deviation 52.2 fL (36.4-46.3); Red Blood Count 3.33 M/uL (4.2-5.4); White Blood Count 6.64 K/uL (4.8-10.8)
[2019-07-17 07:40] LABS: BUN Creatinine Ratio 18.8 (10-20); Calcium 8.9 mg/dl (8.5-10.1); Creatinine Clr Calc Pharmacy 50.5 ml/min; Est GFR (Non-African American) 53.5; Potassium 4.3 mmol/L (3.5-5.1)
[2019-07-17] MEDS: PANTOprazole 40 MG TAB PO SCH (08:16)
[2019-07-17] MEDS: LATANOPROST 0.005% OP SOLN 2.5 ML BTL OP SCH (08:16)
[2019-07-17] MEDS: CHOLECALCIFEROL 1,000 UNITS 25 MCG TAB PO SCH (08:17)
[2019-07-17] MEDS: DOCUSATE SODIUM 100 MG CAP PO SCH (08:17)
[2019-07-17] MEDS: CETIRIZINE HCL 10 MG TABLET PO SCH (08:17)
[2019-07-17] MEDS: VENLAFAXINE HCL XR 150 MG CAPXR PO SCH (08:17)
[2019-07-17] MEDS: VENLAFAXINE HCL XR 75 MG CAPXR PO SCH (08:17)
[2019-07-17] MEDS: CIPROFLOXACIN 250 MG TAB PO SCH ×2 (08:17→20:00)
[2019-07-17] MEDS: DAPSONE 25 MG TAB PO SCH ×2 (08:20→21:04)
--- NOTE | 2019-07-17 12:55 | XCELERA ---
[id number] \\[id number]
--- NOTE | 2019-07-17 16:44 | Hospitalist Progress Note ---
Date of Service July 17, 2019 Assessment & Plan (1) Hypoxia: Passed 2 step. No need for O2 from this perspective although there was some concern from her family that one time she did it with a portable pulse ox she dropped significantly but felt the same on both occasions. I suspect her very low values are not true as she doesn't feel much different @ 78% compared to 88% therefore reading may be incorrect. However I have no good cause for why she is hypoxic in the low 90s most of the time. Tachycardia/palpitations associated with hypoxic episodes may be reactive or possibly the cause. - LDH, Phosphorus WNL - Echo - unremarkable and not contributory, doubtful stress testing would be positive From her history the main two conditions to rule out would be central sleep apnea vs. arrhythmia. Given increased frequency and severity of these episodes I recommend this is performed as an inpatient, especially with her Hgb trending down. Suspect hypoxia is multifactorial with mild orthostasis, fatigue/anemia from chemo. Less likely from UTI (see below). Aim O2 sats > 88% Overnight pulse Ox Place on continuous pulse ox in the morning after overnight study finished to establish morning hypoxic events Orthostatics in AM - when she feels the worse (association after eating makes me think her BP may have a role to play (2) Weakness: Patient experiences episodes of fatigue and weakness while her oxygen level is low. Treatment as above (3) GBM (glioblastoma multiforme): Recently diagnosed, status post craniotomy on 06/06/2019. Presently on radiation therapy daily (scheduled for today at 11:00) - stable to have this. Started Temodar on which after discussing with Dr Thomson is in the right time frame to be causing her current anemia. Yris 7-10 days. - Continue Temodar 130 mg p.o. nightly - Continue dapsone 25 mg p.o. twice daily for prophylaxis (4) Abnormal urinalysis: No bacteria on micro but nitrites positive. No signs or symptoms but patient on chemotherapy therefore will continue ciprofloxacin while we await culture. Specific gravity shows she is dehydrated - she is aware she does not drink enough. Will defer IV fluids rehydration until after workup for hypoxia above. (5) Hypertension: Blood pressure stable at present. - Continue atenolol 25 mg p.o. every afternoon - Continue to monitor - Orthostasics in AM as above (6) Normocytic anemia: ?Secondary to chemo as would match yris of treatment. Although WBC and Plt not similarly suppressed (7) Acid reflux: Chronic. Stable. Continue omeprazole 20 mg (8) Chronic sinusitis: Chronic. Well-controlled. Cetirizine 10 mg p.o. daily (9) Depression: Chronic. Well-controlled. Continue Effexor (10) Hyperlipidemia: Chronic. Stable. Continue atorvastatin (11) Vitamin D deficiency: Chronic. Continue vitamin D supplementation (12) DVT prophylaxis: Continue lovenox 40mg SQ daily Admission and Anticipated Discharge Date Admission Date: July 16, 2019 Anticipated date of discharge: 07/18/19 Subjective Patient seen after radiation, echocardiogram and 2 step performed. She feels she needs oxygen despite passing the 2 step as this was performed in the afternoon and she is usually worse in the mornings. Revisited history with patient: Really for the last week she has been having problems keeping her oxygen levels up including when it was measured in the radiation oncology office. Saturations measured anywhere from 78% to mid 90s is concerning for episodic episodes rather than something occurring all the time. Associated tachycardia/palpitations but possibly reactive to the hypoxia. She sleeps in a different bedroom than her therefore no witnessed apneic episodes. She doesn't wake up short of breath, but feels worse in the mornings and after getting up and eating her O2 sats drop and she feels very tired. No syncope or presyncope. More just weakness. Unclear history of tachycardia episode many years ago which caused her to be in hospital and she was told she needed a beta-kenia after this and has been on atenolol ever since. Review of Systems Review of Systems: All systems reviewed & are unremarkable except as noted in HPI & below Physical Exam Constitutional: WD/WN, vitals as above Eyes: + conjunctival abnormality (pale) and + anicteric sclerae; normal pupil size ENMT: external ear and nose normal, oropharynx normal Neck: trachea midline, no thyromegaly Respiratory: normal respiratory effort, lungs clear to auscultation Cardiovascular: RRR, no murmur, no edema Gastrointestinal (Abdomen): normal bowel sounds, soft, nontender, no hepatosplenomegaly Musculoskeletal: no cyanosis or clubbing, extremities motor strength 5/5 Skin: no rashes, warm and dry Neurologic: moves all extremities and awake; no focal motor deficits and not confused Speech / Cognition: normal speech Motor/Sensory: no tremor Psychiatric: A+Ox3, euthymic affect Results & Data ([facility]) Vital Signs (Past 12 Hours) Vital Signs Temp Pulse Pulse Pulse Pulse Resp Resp 07/17/19 15:10 37 C 75 20 07/17/19 14:38 96 H 76 77 18 07/17/19 11:10 36.5 C 82 16 07/17/19 07:16 36.7 C 71 16 Resp Resp BP Pulse Ox Pulse Ox Pulse Ox Pulse Ox 07/17/19 15:10 113/74 91 07/17/19 14:38 16 16 91 91 91 07/17/19 11:10 127/78 92 07/17/19 07:16 110/71 90 PG Care Time/CCT Total # of Minutes Spent Total Time Spent with Patient: Total time spent is greater than 50% in coordination of care (as documented) at patient's floor/unit and/or counseling p atient: Coding Level of Care Code 59944 Subseq Hosp Care Lvl 3 Diagnoses Hypoxia R09.02 Weakness R53.1 GBM (glioblastoma multiforme) C71.9 Abnormal urinalysis R82.90 Hypertension I10 Hypertension type: essential hypertension Normocytic anemia D64.9 Acid reflux K21.9 Esophagitis presence: esophagitis presence not specified Chronic sinusitis J32.9 Sinusitis location: unspecified location Depression F33.9 Active/Remission status: remission status unspecified Depression Type: major depressive disorder Major depression recurrence: recurrent Hyperlipidemia E78.5 Hyperlipidemia type: unspecified Vitamin D deficiency E55.9 DVT prophylaxis Z29.9 (1) Depression Active/Remission status: remission status unspecified Depression Type: major depressive disorder Major depression recurrence: recurrent Qualified Code(s): F33.9 - Major depressive disorder, recurrent, unspecified (2) Hyperlipidemia Hyperlipidemia type: unspecified Qualified Code(s): E78.5 - Hyperlipidemia, unspecified (3) Acid reflux Esophagitis presence: esophagitis presence not specified Qualified Code(s): K21.9 - Gastro-esophageal reflux disease without esophagitis (4) Hypertension Hypertension type: essential hypertension Qualified Code(s): I10 - Essential (primary) hypertension (5) Chronic sinusitis Sinusitis location: unspecified location Qualified Code(s): J32.9 - Chronic sinusitis, unspecified
[2019-07-17] MEDS: ENOXAPARIN INJ 40 MG/0.4 ML SYR SQ SCH (17:41)
[2019-07-17] MEDS: ONDANSETRON INJ 2 MG/ML 2 ML VIAL IV PRN (19:59)
[2019-07-17] MEDS: TEMOZOLOMIDE 20 MG CAPSULE PO SCH (21:04)
[2019-07-17] MEDS: TEMOZOLOMIDE 100 MG CAPSULE PO SCH (21:04)
[2019-07-17] MEDS: ATORVASTATIN 40 MG TAB PO SCH (21:04)
[2019-07-17] MEDS: TEMOZOLOMIDE 5 MG CAPSULE PO SCH (21:04)
[2019-07-17] MEDS: ATENOLOL 25 MG TABLET PO SCH (21:05)
[2019-07-18 08:05] LABS: Base Excess ABG 0.7 mEq/L (-9-1.8); HCO3 ABG 26 mmol/L (19-24); Oxygen Saturation ABG 89.3 % (90-95); PCO2 ABG 41 mmHg (35-46); PO2 ABG 67 mmHg (80-95); pH ABG 7.41 (7.35-7.45)
[2019-07-18 08:06] LABS: Basophils # (auto) 0.02 K/uL (0-0.2); Basophils % (auto) 0.4 %; Eosinophils # (auto) 0.18 K/uL (0-0.5); Eosinophils % (auto) 3.3 %; Hematocrit (blood only) 34.4 % (37-47); Hemoglobin 10.7 g/dL (12.0-16.0); Immature Granulocytes # (auto) 0.01 K/uL (0.00-0.02); Immature Granulocytes % (auto) 0.2 %; Lymphocytes # (auto) 1.08 K/uL (1.2-3.4); Lymphocytes % (auto) 19.6 %; Mean Corpuscular Hemoglobin 30.5 pg (25-34); Mean Corpuscular Hgb Conc 31.1 g/dL (32-36); Mean Platelet Volume 10.5 fL (7.4-10.4); Monocytes # (auto) 0.73 K/uL (0.11-0.59); Monocytes % (auto) 13.3 %; Neutrophils # (auto) 3.48 K/uL (1.4-6.5); Neutrophils % (auto) 63.2 %; Platelet Count 263 K/uL (130-400); RDW Coefficient of Variation 15.1 % (11.5-14.5); RDW Standard Deviation 53.3 fL (36.4-46.3); Red Blood Count 3.51 M/uL (4.2-5.4); Reticulocyte % 3.8 % (0.5-2.0); Reticulocytes # 0.13 10^6/uL (0.02-0.10)
[2019-07-18 08:07] LABS: Allen Test Pos (Pos)
[2019-07-18] MEDS: VENLAFAXINE HCL XR 75 MG CAPXR PO SCH (08:09)
[2019-07-18] MEDS: DOCUSATE SODIUM 100 MG CAP PO SCH (08:09)
[2019-07-18] MEDS: PANTOprazole 40 MG TAB PO SCH (08:09)
[2019-07-18] MEDS: CETIRIZINE HCL 10 MG TABLET PO SCH (08:09)
[2019-07-18] MEDS: CIPROFLOXACIN 250 MG TAB PO SCH (08:09)
[2019-07-18] MEDS: VENLAFAXINE HCL XR 150 MG CAPXR PO SCH (08:09)
[2019-07-18] MEDS: CHOLECALCIFEROL 1,000 UNITS 25 MCG TAB PO SCH (08:09)
[2019-07-18] MEDS: DAPSONE 25 MG TAB PO SCH (08:09)
[2019-07-18] MEDS: LATANOPROST 0.005% OP SOLN 2.5 ML BTL OP SCH (08:10)
[2019-07-18 08:34] LABS: Albumin Level 3.3 gm/dl (3.4-5.0); BUN Creatinine Ratio 18.1 (10-20); Creatinine Clr Calc Pharmacy 50.2 ml/min; Est GFR (Non-African American) 53.5; Potassium 4.3 mmol/L (3.5-5.1)
[2019-07-18 08:37] LABS: Albumin Globulin Ratio 1.1 (0.9-2); Ferritin 370.7 ng/ml (8-388); Globulin 3.1 gm/dl (2.5-4.0); Total Protein 6.4 gm/dl (6.4-8.2)
[2019-07-18] MEDS ORDERED: LACTATED RINGER'S 2,000 ML IV ONE (08:55)
[2019-07-18 09:06] LABS: Folate (Folic Acid) 6.39 ng/ml (>5.38)
[2019-07-18] MEDS: LACTATED RINGER'S 1,000 ML IV SCH ×2 (09:40→12:04)
[2019-07-18] MEDS ORDERED: ALBUT/IPRATROP 3MG/0.5MG NEB 3 ML VIAL NEB ONE (12:17)
--- NOTE | 2019-07-18 13:57 | XRay Report ---
XR chest 2V PA/lateral HISTORY: unexplained hypoxia COMPARISON: None. FINDINGS: The lungs are clear. Cardiac silhouette is normal in size. No pleural effusions. No pneumot horax. IMPRESSION: No acute process. ACT 112: Negative or not required by law. Electronically signed by: Deshawn Bernard M.D. 07/18/2019 1:56 PM
[2019-07-18] MEDS: ASCORBIC ACID 1,500 MG, THIAMINE HCL 100 MG in 0.9 % SODIUM CHLORIDE 100 ML IV SCH ×2 (16:02→21:38)
[2019-07-18] MEDS ORDERED: METHYLENE BLUE 0.5% 10 ML VIAL IV SCH (16:15)
[2019-07-18] MEDS: ATOVAQUONE 750 MG/5 ML UDC PO SCH (17:17)
[2019-07-18] MEDS: ENOXAPARIN INJ 40 MG/0.4 ML SYR SQ SCH (18:23)
[2019-07-18] MEDS: ONDANSETRON INJ 2 MG/ML 2 ML VIAL IV PRN (18:26)
[2019-07-18] MEDS: TEMOZOLOMIDE 5 MG CAPSULE PO SCH (19:38)
[2019-07-18] MEDS: TEMOZOLOMIDE 20 MG CAPSULE PO SCH (19:38)
[2019-07-18] MEDS: TEMOZOLOMIDE 100 MG CAPSULE PO SCH (19:39)
[2019-07-18] MEDS: ATORVASTATIN 40 MG TAB PO SCH (21:38)
[2019-07-18] MEDS: ATENOLOL 25 MG TABLET PO SCH (21:38)
--- NOTE | 2019-07-18 22:06 | Hospitalist Progress Note ---
Date of Service July 18, 2019 Assessment & Plan (1) Acquired methemoglobinemia: Dapsone-induced, now stopped but she had dose this morning. Half life 28 hours. Approx 6 days elimination. Methemoglobinemia level > 9.9%. Repeat in AM. Suspect this is the reason for her dark urine in addition. Patient has early symptoms of cyanosis, tachycardia, lightheadedness and lethargy but no respiratory distress or presyncope. Given slow progression of symptoms will treat with IV vitamin C although actual percentage is not known therefore low tolerance to treat with methylene blue if clinically worsening. She takes 225mg of venlafaxine therefore is at higher risk of serotonin syndrome therefore would need monitoring for this if MB used. G6PD is a send out test therefore this would not influence methylene blue decision, she has no known G6PD def. Discussed with poison control - agree with plan above. Recommended monitoring for hemolysis, therefore will get LDH daily. Care discussed with her heme/oncologist Dr Thomson, consulted for tomorrow. (2) Dapsone adverse reaction: as above. Possible hemolysis in addition as LDH increasing although hgb increased on recent labs. (3) Hypoxia: Patient was set to be discharged however still without a definitive cause of her generalized hypoxia with possible episodic events. Anemia did not appear chemotherapy induced as LDH minimally raised and retic count elevated therefore more suspicious of dapsone causing side effects. Therefore methemoglobinemia level ordered and elevated which explains why she feels so much better while on O2 when sats are 90%. Suspect her episodes of worsening hypoxia are peripheral vasoconstriction due to severe organ hypoxia. Secondary to methemoglobinemia as above. Overnight pulse ox qualifies her for home O2 although her true tissue hypoxia is worse than this due to methemoglobinemia. No central sleep apnea suspected but could consider outpatient sleep study. Borderline orthostasis may also be contributing but appropriate tachycardia on standing suggestive atenolol not causing this, therefore will continue this Echo - unremarkable and not contributory. (4) Weakness: Multifactorial but certainly methemoglobinemia likely the largest contributor. Chemotherapy also contributory. (5) GBM (glioblastoma multiforme): Recently diagnosed, status post craniotomy on 06/06/2019. Presently on radiation therapy daily (scheduled for today at 11:00) - stable to have this. - Continue Temodar 130 mg p.o. nightly - Switch dapsone for atovaquone for PCP prophylaxis (6) Abnormal urinalysis: Urine culture negative (although taken after antibiotics). Asymptomatic therefore will stop ciprofloxacin. (7) Hypertension: Blood pressure stable at present. - Continue atenolol 25 mg p.o. every afternoon - Continue to monitor - Borderline orthostasis, will review once methemoglobinemia treated and patient well hydrated. (8) Acid reflux: Chronic. Stable. Continue omeprazole 20 mg (9) Chronic sinusitis: Chronic. Well-controlled. Cetirizine 10 mg p.o. daily (10) Depression: Chronic. Well-controlled. Continue Effexor (11) Hyperlipidemia: Chronic. Stable. Continue atorvastatin (12) Vitamin D deficiency: Chronic. Continue vitamin D supplementation (13) DVT prophylaxis: Continue lovenox 40mg SQ daily Admission and Anticipated Discharge Date Admission Date: July 16, 2019 Unknown discharge at this time Subjective Concern from her that she looks much worse today, more pale than the previous day. She feels more short of breath having not had oxygen in the morning but does not feel like she is going to faint. She is ok when resting but significantly short of breath on exertion. No chest pain. No presyncope or syncope. No events such as what she had been having at home with sudden hypoxia. Pulse oximetry overnight shows very consistent hypoxia rather than episodic events and no abnormal rhythms on telemetry. Review of Systems Review of Systems: All systems reviewed & are unremarkable except as noted in HPI & below Physical Exam Constitutional: WD/WN, vitals as above Eyes: + conjunctival abnormality (pale) and + anicteric sclerae; normal pupil size Neck: trachea midline, no thyromegaly Respiratory: normal respiratory effort, lungs clear to auscultation (at rest) Cardiovascular: RRR, no murmur, no edema Gastrointestinal (Abdomen): normal bowel sounds, soft, nontender, no hepatosplenomegaly Musculoskeletal: Agree with her that she appears more peripherally cyanotic this morning but improved somewhat after O2 given Skin: no rashes, warm and dry Neurologic: moves all extremities and awake; no focal motor deficits and not confused Speech / Cognition: normal speech Motor/Sensory: no tremor Psychiatric: A+Ox3, euthymic affect Lymphatic: no cervical or axillary lymphadenopathy Results & Data ([facility]) Vital Signs (Past 12 Hours) Vital Signs Temp Pulse Pulse Resp BP Pulse Ox 07/18/19 18:37 36.9 C 81 20 110/76 95 07/18/19 15:12 36.4 C L 70 20 114/71 95 07/18/19 12:28 80 16 94 07/18/19 11:50 36.8 C 69 18 119/76 94 07/18/19 10:13 78 PG Care Time/CCT Total # of Minutes Spent Total Time Spent with Patient: Total time spent is greater than 50% in coordination of care (as documented) at patient's floor/unit and/or counseling patient: Coding Level of Care Code 11059 Subseq Hosp Care Lvl 3 Diagnoses Acquired methemoglobinemia D74.8 Dapsone adverse reaction T37.1X5A Encounter type: initial encounter Hypoxia R09.02 Weakness R53.1 GBM (glioblastoma multiforme) C71.9 Abnormal urinalysis R82.90 Hypertension I10 Hypertension type: essential hypertension Acid reflux K21.9 Esophagitis presence: esophagitis presence not specified Chronic sinusitis J32.9 Sinusitis location: unspecified location Depression F33.9 Depression Type: major depressive disorder Major depression recurrence: recurrent Active/Remission status: remission status unspecified Hyperlipidemia E78.5 Hyperlipidemia type: unspecified Vitamin D deficiency E55.9 DVT prophylaxis Z29.9 (1) Hypertension Hypertension type: essential hypertension Qualified Code(s): I10 - Essential (primary) hypertension (2) Acid reflux Esophagitis presence: esophagitis presence not specified Qualified Code(s): K21.9 - Gastro-esophageal reflux disease without esophagitis (3) Chronic sinusitis Sinusitis location: unspecified location Qualified Code(s): J32.9 - Chronic sinusitis, unspecified (4) Depression Depression Type: major depressive disorder Major depression recurrence: recurrent Active/Remission status: remission status unspecified Qualified Code(s): F33.9 - Major depressive disorder, recurrent, unspecified (5) Hyperlipidemia Hyperlipidemia type: unspecified Qualified Code(s): E78.5 - Hyperlipidemia, unspecified (6) Dapsone adverse reaction Encounter type: initial encounter Qualified Code(s): T37.1X5A - Adverse effect of antimycobacterial drugs, initial encounter
[2019-07-19] MEDS: ASCORBIC ACID 1,500 MG, THIAMINE HCL 100 MG in 0.9 % SODIUM CHLORIDE 100 ML IV SCH ×4 (04:32→22:20)
[2019-07-19] MEDS: VENLAFAXINE HCL XR 75 MG CAPXR PO SCH (08:10)
[2019-07-19] MEDS: PANTOprazole 40 MG TAB PO SCH (08:10)
[2019-07-19] MEDS: VENLAFAXINE HCL XR 150 MG CAPXR PO SCH (08:10)
[2019-07-19] MEDS: LATANOPROST 0.005% OP SOLN 2.5 ML BTL OP SCH (08:11)
[2019-07-19] MEDS: CHOLECALCIFEROL 1,000 UNITS 25 MCG TAB PO SCH (08:11)
[2019-07-19] MEDS: CETIRIZINE HCL 10 MG TABLET PO SCH (08:11)
[2019-07-19 08:17] LABS: Basophils # (auto) 0.01 K/uL (0-0.2); Basophils % (auto) 0.2 %; Eosinophils # (auto) 0.13 K/uL (0-0.5); Eosinophils % (auto) 3.2 %; Hematocrit (blood only) 30.1 % (37-47); Hemoglobin 9.4 g/dL (12.0-16.0); Immature Granulocytes # (auto) 0.01 K/uL (0.00-0.02); Immature Granulocytes % (auto) 0.2 %; Lymphocytes # (auto) 0.77 K/uL (1.2-3.4); Lymphocytes % (auto) 19.2 %; Mean Corpuscular Hemoglobin 31.1 pg (25-34); Mean Corpuscular Hgb Conc 31.2 g/dL (32-36); Mean Corpuscular Volume 99.7 fL (80-100); Mean Platelet Volume 10.2 fL (7.4-10.4); Monocytes # (auto) 0.44 K/uL (0.11-0.59); Neutrophils # (auto) 2.65 K/uL (1.4-6.5); Neutrophils % (auto) 66.2 %; Platelet Count 215 K/uL (130-400); RDW Coefficient of Variation 15.7 % (11.5-14.5); RDW Standard Deviation 56.4 fL (36.4-46.3); Red Blood Count 3.02 M/uL (4.2-5.4); White Blood Count 4.01 K/uL (4.8-10.8)
[2019-07-19 08:57] LABS: Albumin Level 2.7 gm/dl (3.4-5.0); BUN Creatinine Ratio 15.8 (10-20); Calcium 8.9 mg/dl (8.5-10.1); Creatinine Clr Calc Pharmacy 56.4 ml/min; Est GFR (African American) 70.8; Est GFR (Non-African American) 61.1; Potassium 3.9 mmol/L (3.5-5.1)
[2019-07-19 09:07] LABS: Albumin Globulin Ratio 0.9 (0.9-2); Bilirubin,Total 0.8 mg/dl (0.2-1); Globulin 2.9 gm/dl (2.5-4.0); Thyroid Stimulating Hormone 1.7 uIu/ml (0.300-4.500); Total Protein 5.6 gm/dl (6.4-8.2)
[2019-07-19] MEDS: DOCUSATE SODIUM 100 MG CAP PO SCH (09:33)
--- NOTE | 2019-07-19 11:24 | Oncology Consultation ---
Date of Consultation July 19, 2019 Assessment & Plan (1) Acquired methemoglobinemia: Acquired methemoglobinemia is a classic complication of dapsone. Since we stopped it, her numbers and symptoms have improved, though she is still requiring high-flow oxygen. She was not cyanotic and never in respiratory distress. She also is on venlafaxine, which reacts with methylene blue. Since she's improving, I do not think she needs it now. I think she would probably benefit from one more day of observation. In that time, we will hopefully see her hemoglobin come up a bit and also get her down to a more manageable oxygen flow rate. She has home oxygen set up, though not portable oxygen. She will probably require some oxygen support for a while until her body can clear all of the methemoglobin. However, now that she is off the dapsone, it should stop accumulating. I asked her to start atovaquone for PJP prophlyaxis in lieu of the dapsone. We will need to provide her a prescription on discharge. She needs to continue it for the duration of her concurrent chemoradiotherapy. Present on Admission?: Yes (2) GBM (glioblastoma multiforme): She continued with both her Temodar and the RT throughout her stay. We will continue with treatment next week. I will make arrangements to follow up with her next week and to check her labs again. Present on Admission?: Yes History of Present Illness Reason for Consultation: Methemoglobinemia Attending Physician: David Simth MD History of Present Illness Ms. Henry is a generally healthy 69 year old woman who was diagnosed in May with a glioblastoma multiforme. She had surgery 06/06/19 and began adjuvant chemoradiation last week. As part of her treatment, I asked her to start dapsone for PJP prophylaxis, because of a sulfa allergy. She was seen in radiation oncology late last week and was found to be hypoxic and tachycardic. We obtained a CTA on 07/15 that was negative for a PE and showed no evidence of infiltrates to suggest pneumonia or pneumonitis. However, she continued to feel worse and so she came to the hospital. She was still hypoxic here, with O2 in the low 80s on room air. She got modestly better, but her hemoglobin was falling, as it has been since she started treatment. The decline was out of proportion to what we would expect from chemotherapy alone, so we ordered labs to evaluate for hemolysis. She did appear to be hemolyzing and a methemoglobin was checked and was high, consistent with dapsone-related methemoglobinemia. Her dapsone was stopped early yesterday and she received some vitamin C and B2. Her methemoglobin level is down today and she's feeling better, though she is still requiring high-flow oxygen. She denied any cough or sputum production. She is still short of breath when she ambulates, particularly without oxygen. Her urine is becoming manager hospice in color. She denied any headaches, fevers, abdominal pain, diarrhea, or other joint or bone pain. Allergies Allergy/AdvReac Type Severity Reaction Status Date / Time Penicillins Allergy Unknown HIVES Verified 07/16/19 13:13 Sulfa (Sulfonamide Allergy Unknown HIVES Verified 07/16/19 13:13 Antibiotics) Home Medications Home Medications Medication Instructions Recorded Confirmed Type atorvastatin 40 mg tablet 40 mg PO QPM #90 tab 02/28/19 07/16/19 Rx atenolol 25 mg tablet 25 mg PO QPM #90 tab 06/11/19 07/16/19 Rx acetaminophen 325 mg capsule 650 mg PO Q4H PRN cap 06/20/19 07/16/19 History cholecalciferol (vitamin D3) 50 2,000 units PO DAILY 06/20/19 07/16/19 History mcg (2,000 unit) tablet latanoprost 0.005 % eye drops 1 drops OP DAILY ml 06/20/19 07/16/19 History venlafaxine 150 mg 150 mg PO DAILY 06/20/19 07/16/19 History capsule,extended release 24 hr dapsone 25 mg tablet 25 mg PO BID tab 07/07/19 07/16/19 History docusate sodium 100 mg capsule 100 mg PO DAILY 07/07/19 07/16/19 History ondansetron HCl 8 mg tablet 8 mg PO DAILY tab 07/07/19 07/16/19 History cetirizine 10 mg capsule 10 mg PO DAILY cap 07/10/19 07/16/19 History venlafaxine 75 mg capsule,extended 75 mg PO DAILY #30 cap 07/11/19 07/16/19 Rx release 24 hr temozolomide 140 mg capsule 130 mg PO DAILY cap 02/17/20 02/19/20 History omeprazole 20 mg PO DAILY 07/16/19 07/16/19 History ciprofloxacin HCl 250 mg PO BID 1 Days #2 tab 07/18/19 Rx Patient History Medical History Acid reflux Acute renal insufficiency Anxiety Arthritis Chronic sinusitis Depression GBM (glioblastoma multiforme) 06/06/2019 Glaucoma HTN (hypertension) Hyperlipidemia Mitral valve prolapse syndrome Obsessive compulsive disorder Osteoporosis Prediabetes Psoriasis Seasonal allergies Vitamin D deficiency Surgical History H/O total hysterectomy with bilateral salpingo-oophorectomy (BSO) History of appendectomy Hx of cataract surgery Bilateral S/P craniotomy (06/06/19) Left craniotomy with mass resection, Dr. Grimaldo at [facility] S/P hip arthroscopy Right hip, bursectomy Left hip, bursectomy S/P tonsillectomy Family History Mother , 81yo COPD (chronic obstructive pulmonary disease) Osteoporosis Father , 66yo Cardiac disorder Prostate cancer Myocardial infarction Grandfather (Maternal) Diabetes Son Prediabetes Brother No problems noted. Brother No problems noted. Sister No problems noted. Sister No problems noted. Sister No problems noted. Son Hypertension Daughter No problems noted. 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 Physical Exam Constitutional: healthy appearing and comfortable; no acute distress Eyes: + anicteric sclerae Respiratory: normal respiratory effort, lungs clear to auscultation Cardiovascular: RRR, no murmur, no edema Gastrointestinal (Abdomen): Inspection/Auscultation: normal bowel sounds; a bdomen not distended Percussion/Palpation: abdomen soft; abdomen nontender Skin: no rashes, warm and dry Psychiatric: A+Ox3, euthymic affect Lymphatic: no cervical or axillary lymphadenopathy Results & Data Vital Signs (Past 12 Hours) Vital Signs Temp Pulse Pulse Resp BP BP Pulse Ox 07/19/19 11:20 36.6 C 67 18 98/63 L 97 07/19/19 07:41 36.6 C 68 18 100/65 97 07/19/19 04:17 36.8 C 69 20 97/60 L 94 07/19/19 00:00 71 Laboratory Results Abnormal lab results 07/18/19 07/19/19 07/19/19 Range/Units 14:20 08:08 08:08 WBC 4.01 L (4.8-10.8) K/uL RBC 3.02 L (4.2-5.4) M/uL Hgb 9.4 L (12.0-16.0) g/dL Hct 30.1 L (37-47) % MCHC 31.2 L (32-36) g/dL RDW Std Deviation 56.4 H (36.4-46.3) fL RDW Coeff of Flaca 15.7 H (11.5-14.5) % Lymph # (Auto) 0.77 L (1.2-3.4) K/uL Methemoglobin > 9.9 H (0.0-1.5) % Chloride 109 H (98-107) mmol/L Glucose 130 H (70-99) mg/dl Lactate Dehydrogenase (84-246) U/L Total Protein 5.6 L (6.4-8.2) gm/dl Albumin 2.7 L (3.4-5.0) gm/dl 07/19/19 07/19/19 Range/Units 08:08 08:08 WBC (4.8-10.8) K/uL RBC (4.2-5.4) M/uL Hgb (12.0-16.0) g/dL Hct (37-47) % MCHC (32-36) g/dL RDW Std Deviation (36.4-46.3) fL RDW Coeff of Flaca (11.5-14.5) % Lymph # (Auto) (1.2-3.4) K/uL Methemoglobin 8.2 H (0.0-1.5) % Chloride (98-107) mmol/L Glucose (70-99) mg/dl Lactate Dehydrogenase 305 H (84-246) U/L Total Protein (6.4-8.2) gm/dl Albumin (3.4-5.0) gm/dl
[2019-07-19] MEDS: ATOVAQUONE 750 MG/5 ML UDC PO SCH (17:08)
[2019-07-19] MEDS: ENOXAPARIN INJ 40 MG/0.4 ML SYR SQ SCH (17:08)
--- NOTE | 2019-07-19 18:22 | Hospitalist Progress Note ---
Date of Service July 19, 2019 Assessment & Plan (1) Acquired methemoglobinemia: Dapsone-induced, last dose 07/18 AM. Half life 28 hours. Approx 6 days complete elimination. Methemoglobinemia level > 9.9%, now down to 8.2. Repeat in AM. Given improvement in urine appears consistent her dark urine was due to this. Improvement without methylene blue. Will continue high dose IV vitamin C overnight. SpO2 generally not accurate in methemoglobinemia although as this improves will be easier to aim > 94%. PaO2 underestimates degree of tissue hypoxia and was low regardless (possibly due to hemolysis). Discussed with poison control 07/18. Appreciate heme/onc consult, discussed with Dr Thomson, will observe overnight and repeat labs in AM to assess for continued improvement. (2) Dapsone adverse reaction: as above. Suspect hemolysis secondary to methemoglobinemia. LDH/Hgb stable. Will continue to trend. (3) Hypoxia: SpO2 low (and inaccurate) secondary to methemoglobinemia and this will improve as the MetHb% decreases back to normal. Difficult to know her true tissue hypoxia on admission without the exact metHb% yesterday but once <3% SpO2 will be accurate again. For now will aim O2 sats > 94%. ABG - PaO2 on 07/17 and 07/18 not reflective of tissue hypoxia and overestimates Hgb O2 sats. Therefore on room air on 06/17 O2 sats < 89.3%, but unable to determine how much less. No central sleep apnea suspected but could consider outpatient sleep study if symptoms continue. Borderline orthostasis may also be contributing but appropriate tachycardia on standing suggestive atenolol not causing this, therefore will continue this Echo - unremarkable and not contributory. (4) Weakness: Multifactorial but certainly methemoglobinemia likely the largest cont ributor. Chemotherapy and dehydration also likely also contributing. (5) GBM (glioblastoma multiforme): Recently diagnosed, status post craniotomy on 06/06/2019. Presently on radiation therapy daily - stable to continue to have this. - Continue Temodar 130 mg p.o. nightly - Switched dapsone for atovaquone for PCP prophylaxis (6) Abnormal urinalysis: Urine culture negative (although taken after antibiotics). Asymptomatic ciprofloxacin discontinued. (7) Hypertension: Blood pressure stable at present. - Continue atenolol 25 mg p.o. every afternoon - Continue to monitor - Borderline orthostasis, will review once methemoglobinemia treated and patient well hydrated. (8) Acid reflux: Chronic. Stable. Continue omeprazole 20 mg (9) Chronic sinusitis: Chronic. Well-controlled. Cetirizine 10 mg p.o. daily (10) Depression: Chronic. Well-controlled. Continue Effexor (11) Hyperlipidemia: Chronic. Stable. Continue atorvastatin (12) Vitamin D deficiency: Chronic. Continue vitamin D supplementation (13) DVT prophylaxis: Continue lovenox 40mg SQ daily Admission and Anticipated Discharge Date Admission Date: July 16, 2019 Anticipated date of discharge: 07/20/19 Subjective She feels much better overnight on oxygen throughout the night. Color is much better. No shortness of breath of chest pain at rest. No jaundice. Review of Systems Review of Systems: All systems reviewed & are unremarkable except as noted in HPI & below Physical Exam Constitutional: WD/WN, vitals as above Eyes: + anicteric sclerae; no conjunctival abnormality and normal pupil size ENMT: external ear and nose normal, oropharynx normal Neck: trachea midline, no thyromegaly Respiratory: normal respiratory effort, lungs clear to auscultation Cardiovascular: RRR, no murmur, no edema Gastrointestinal (Abdomen): normal bowel sounds, soft, nontender, no hepatosplenomegaly Musculoskeletal: no cyanosis or clubbing, extremities motor strength 5/5 (her color appears much improved both centrally and peripherally on O2 high ) Skin: no rashes, warm and dry Neurologic: moves all extremities and awake; no focal motor deficits and not confused Speech / Cognition: normal speech Motor/Sensory: no tremor Psychiatric: A+Ox3, euthymic affect Lymphatic: no cervical or axillary lymphadenopathy Results & Data ([facility]) Vital Signs (Past 12 Hours) Vital Signs Temp Pulse Pulse Pulse Resp BP BP 07/19/19 17:39 76 07/19/19 17:30 96 H 07/19/19 17:00 07/19/19 16:56 76 174/64 H 07/19/19 16:53 36.8 C 96 H 18 98/64 L 07/19/19 15:33 36.7 C 85 18 90/56 L 07/19/19 11:34 72 07/19/19 11:20 36.6 C 67 18 98/63 L 07/19/19 07:41 36.6 C 68 18 100/65 Pulse Ox Pulse Ox 07/19/19 17:39 07/19/19 17:30 07/19/19 17:00 95 07/19/19 16:56 07/19/19 16:53 95 07/19/19 15:33 97 07/19/19 11:34 07/19/19 11:20 97 07/19/19 07:41 97 PG Care Time/CCT Total # of Minutes Spent Total Time Spent with Patient: Total time spent is greater than 50% in coordination of care (as documented) at patient's floor/unit and/or counseling patient: Coding Level of Care Code 71265 Subseq Hosp Care Lvl 3 Diagnoses Acquired methemoglobinemia D74.8 Dapsone adverse reaction T37.1X5A Encounter type: initial encounter Hypoxia R09.02 Weakness R53.1 GBM (glioblastoma multiforme) C71.9 Abnormal urinalysis R82.90 Hypertension I10 Hypertension type: essential hypertension Acid reflux K21.9 Esophagitis presence: esophagitis presence not specified Chronic sinusitis J32.9 Sinusitis location: unspecified location Depression F33.9 Depression Type: major depressive disorder Major depression recurrence: recurrent Active/Remission status: remission status unspecified Hyperlipidemia E78.5 Hyperlipidemia type: unspecified Vitamin D deficiency E55.9 DVT prophylaxis Z29.9 (1) Dapsone adverse reaction Encounter type: initial encounter Qualified Code(s): T37.1X5A - Adverse effect of antimycobacterial drugs, initial encounter (2) Hypertension Hypertension type: essential hypertension Qualified Code(s): I10 - Essential (primary) hypertension (3) Acid reflux Esophagitis presence: esophagitis presence not specified Qualified Code(s): K21.9 - Gastro-esophageal reflux disease without esophagitis (4) Chronic sinusitis Sinusitis location: unspecified location Qualified Code(s): J32.9 - Chronic sinusitis, unspecified (5) Depression Depression Type: major depressive disorder Major depression recurrence: recurrent Active/Remission status: remission status unspecified Qualified Code(s): F33.9 - Major depressive disorder, recurrent, unspecified (6) Hyperlipidemia Hyperlipidemia type: unspecified Qualified Code(s): E78.5 - Hyperlipidemia, unspecified
[2019-07-19] MEDS: ONDANSETRON INJ 2 MG/ML 2 ML VIAL IV PRN (18:49)
[2019-07-19] MEDS: ATENOLOL 25 MG TABLET PO SCH (20:00)
[2019-07-19] MEDS: TEMOZOLOMIDE 100 MG CAPSULE PO SCH (20:00)
[2019-07-19] MEDS: ATORVASTATIN 40 MG TAB PO SCH (20:01)
[2019-07-19] MEDS: TEMOZOLOMIDE 20 MG CAPSULE PO SCH (20:01)
[2019-07-19] MEDS: TEMOZOLOMIDE 5 MG CAPSULE PO SCH (20:02)
[2019-07-20] MEDS: ASCORBIC ACID 1,500 MG, THIAMINE HCL 100 MG in 0.9 % SODIUM CHLORIDE 100 ML IV SCH ×2 (04:57→10:15)
[2019-07-20 07:33] LABS: Basophils # (auto) 0.02 K/uL (0-0.2); Basophils % (auto) 0.5 %; Eosinophils # (auto) 0.16 K/uL (0-0.5); Eosinophils % (auto) 4.2 %; Hematocrit (blood only) 29.3 % (37-47); Lymphocytes # (auto) 0.92 K/uL (1.2-3.4); Lymphocytes % (auto) 24.3 %; Mean Corpuscular Hemoglobin 30.6 pg (25-34); Mean Corpuscular Hgb Conc 30.7 g/dL (32-36); Mean Corpuscular Volume 99.7 fL (80-100); Mean Platelet Volume 10.6 fL (7.4-10.4); Monocytes # (auto) 0.45 K/uL (0.11-0.59); Monocytes % (auto) 11.9 %; Neutrophils # (auto) 2.23 K/uL (1.4-6.5); Neutrophils % (auto) 59.1 %; Platelet Count 227 K/uL (130-400); RDW Coefficient of Variation 16.4 % (11.5-14.5); RDW Standard Deviation 59.5 fL (36.4-46.3); Red Blood Count 2.94 M/uL (4.2-5.4); White Blood Count 3.78 K/uL (4.8-10.8)
[2019-07-20 08:12] LABS: Albumin Level 2.7 gm/dl (3.4-5.0); BUN Creatinine Ratio 17.9 (10-20); Calcium 8.7 mg/dl (8.5-10.1); Creatinine Clr Calc Pharmacy 59.5 ml/min; Est GFR (African American) 75.6; Est GFR (Non-African American) 65.2; Potassium 4.1 mmol/L (3.5-5.1)
[2019-07-20 08:15] LABS: Bilirubin,Total 0.7 mg/dl (0.2-1); Globulin 2.8 gm/dl (2.5-4.0); Total Protein 5.5 gm/dl (6.4-8.2)
[2019-07-20] MEDS ORDERED: VITAMIN B COMPLEX TAB PO SCH (09:00)
[2019-07-20] MEDS: DOCUSATE SODIUM 100 MG CAP PO SCH (10:10)
[2019-07-20] MEDS: VENLAFAXINE HCL XR 150 MG CAPXR PO SCH (10:10)
[2019-07-20] MEDS: PANTOprazole 40 MG TAB PO SCH (10:11)
[2019-07-20] MEDS: VENLAFAXINE HCL XR 75 MG CAPXR PO SCH (10:12)
[2019-07-20] MEDS: CHOLECALCIFEROL 1,000 UNITS 25 MCG TAB PO SCH (10:12)
[2019-07-20] MEDS: CETIRIZINE HCL 10 MG TABLET PO SCH (10:13)
[2019-07-20] MEDS: LATANOPROST 0.005% OP SOLN 2.5 ML BTL OP SCH (10:13)
--- NOTE | 2019-07-21 16:12 | Discharge Summary ---
Date of Service July 20, 2019 Admission HPI Per Admitting Provider Kimmy Henry is a 69-year-old female with history of recently diagnosed glioblastoma multiform status post left frontal craniotomy with fluorescence guided resection of the mass performed at [facility] on 06/06/2019, presently undergoing radiation therapy and Temodar therapy. Patient reports over the last 1 to 2 weeks she has been having episodes of lightheadedness, shortness of breath and presyncope. She was monitoring her saturations at home using a home oximeter and reported episodes of hypoxemia, saturations as low as 78% at times. Patient was instructed to come to the ER today for additional work-up and treatment of hypoxemia. Additionally, her blood pressures been low in the mornings. She was previously on lisinopril which is since been discontinued. She reports feeling short of breath and fatigued. She experiences palpitations and left-sided chest discomfort when her oxygen saturations are low. She denies fever/chills/cough/orthopnea/edema/weight gain. No hemoptysis. No sick contacts or recent travel. Patient hemodynamically stable in the ER. Variable pulse ox ranging 88 to 94% while on 2 L nasal cannula. Saturations decreased when patient is speaking. No decrease saturation with standing or leaning forward. She occasionally snores. Admission Exam Per Admitting Provider General: patient resting comfortably, NAD, non-toxic in appearance, AA&O x 4 Skin: warm, dry, intact, no rashes or lesions, HEENT: NC/AT, PERRL, EOMI, anicteric sclera, conjunctiva without injection, external ear normal to inspection and nontender, nares patent, moist mucus membranes, dentition intact, no oropharyngeal lesions, neck supple, trachea midline, no LAD, no thyromegaly, no JVD Heart: +S1/S2, regular, no m/r/g Lungs: equal air entry bilaterally, no rales/rhonchi/wheezes Abd: +BS, soft, NT/ND, no masses/organomegaly/ascites Ext: warm, 2+ pulses in UE/LE bilaterally, no clubbing/cyanosis or edema Neuro: nonfocal, patient AA&O x 4, speech intact, no facial droop, moving all extremities on command with equal strength 5/5 Principal Diagnosis Dapsone-induced methemoglobinemia and hemolytic anemia Discharge Exam Constitutional WD/WN, vitals as above Eyes + anicteric sclerae; no conjunctival abnormality and normal pupil size ENMT external ear and nose normal, oropharynx normal Neck trachea midline, no thyromegaly Respiratory normal respiratory effort, lungs clear to auscultation Cardiovascular RRR, no murmur, no edema Gastrointestinal (Abdomen) normal bowel sounds, soft, nontender, no hepatosplenomegaly Musculoskeletal no cyanosis or clubbing, extremities motor strength 5/5 (her color appears much improved both centrally and peripherally on O2 high ) Skin no rashes, warm and dry Neurologic moves all extremities and awake; no focal motor deficits and not confused Speech / Cognition: normal speech Motor/Sensory: no tremor Psychiatric A+Ox3, euthymic affect Lymphatic no cervical or axillary lymphadenopathy Discharge Data Allergies Allergy/AdvReac Type Severity Reaction Status Date / Time Penicillins Allergy Unknown HIVES Verified 07/21/19 12:00 Sulfa (Sulfonamide Allergy Unknown HIVES Verified 07/21/19 12:00 Antibiotics) Consultations 07/16/19 15:01 ED Decision to Admit Stat 07/18/19 22:48 Consult Hematology Routine Hospital Course (1) Acquired methemoglobinemia: Kimmy Henry is a 69 year old female admitted to [facility] from July 16 to 2019 due to low oxygen saturations, tachycardia, cyanosis, fatigue and generalized weakness progressively getting worse over the last 2 weeks. Outpatient workup including CT chest for PE was normal. Inpatient workup including routine labs, CXR, and arterial blood gas showed a mild anemia and mildly low arterial oxygenation but were otherwise normal. Due to ongoing symptoms out of proportion to your oxygen saturations and mild suspected hemolytic anemia on labs a methemoglobin level was subsequently taken and confirmed diagnosis of methemoglobinemia caused by dapsone. This level subsequently improved with discontinuation of dapsone (switched to atovaquone for PCP prophylaxis) and high doses of intravenous vitamin C. No methylene blue was given due to mild symptoms and risk of serotonin syndrome with venlafaxine use. She developed an ongoing mild hemolytic anemia after this which is expected and will be monitored as an outpatient with Dr Thomson. Labs ordered for tomorrow (Sunday). Prior to treatment she passed a 6 minute walking test without oxygen. Nocturnal pulse oximetry showed your oxygen saturation steady around 86-87% throughout the night. However, in hindsight, after diagnosis of methemoglobinemia, these tests are both completely inaccurate in the setting of methemoglobinemia. 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 She was also borderline orthostatic. Unclear underlying diagnosis of prior tachycardia/arrhythmia requiring beta-kenia but apparently she has been told by multiple physicians she should stay on one. Therefore will atenolol switched for metoprolol to have less of an effect on her blood pressure. She can continue to follow up for radiation and oncology as previously scheduled. (2) Dapsone adverse reaction: (3) Hypoxia: (4) Weakness: (5) GBM (glioblastoma multiforme): (6) Abnormal urinalysis: (7) Hypertension: (8) Acid reflux: (9) Chronic sinusitis: (10) Depression: (11) Hyperlipidemia: (12) Vitamin D deficiency: Total Time Total Time Spent Total Time Spent (In Minutes): 45 Total Time Includes: Examination of the Patient, Discharge Planning, Medication Reconciliation and Communication With Other Providers (Dr Thomson) Discharge Plan Discharge Items Patient Disposition: Home - Home Health Services Reason For Visit: HYPOXIA Discharge Diagnosis: Dapsone-induced methemoglobinemia and hemolytic anemia Nocturnal hypoxia Condition on Discharge: Fair Activity: Resume your previous activity Non-emergency contact: Primary Care Provider and Oncologist Call non-emergency contact if: you have any medication questions and your sympto ms worsen Follow-up/Referrals: Libra Connolly DO [Primary Care Provider] - Sebastien Thomson [Physician] - (Please reschedule appointment that was cancelled 07/18/2019) Diet: Regular Addtl Attending Provider Instructions: You were admitted to [facility] from July 16 to 2019 due to low oxygen saturations, high heart rate, cyanosis, fatigue and generalized weakness. Outpatient workup including CT chest for blood clot (pulmonary embolism) was normal. Inpatient workup including routine labs, CXR, and arterial blood gas showed a mild anemia and mildly low arterial oxygenation but were otherwise normal. Due to ongoing symptoms out of proportion to your oxygen saturations and mild suspected hemolytic anemia on labs a methemoglobin level was subsequently taken and confirmed diagnosis of methemoglobinemia caused by dapsone. This level subsequently improved with discontinuation of dapsone (switched to atovaquone for PCP prophylaxis) and high doses of intravenous vitamin C. You developed a mild hemolytic anemia after this which is expected and will be monitored as an outpatient with Dr Thomson. You passed the 6 minute walking test without oxygen. Nocturnal pulse oximetry showed your oxygen saturation steady around 86-87% throughout the night. However, in hindsight, these tests are both completely inaccurate in the setting of methemoglobinemia. However recommend using oxygen if you are symptomatic or In addition you were borderline orthostatic (blood pressure drops on standing). Since your prior high heart rate arrhythmia is unknown recommend continuing on a beta kenia but will switch to metoprolol to have less of an effect on your blood pressure. Please call your primary care physician if you feel lightheaded on standing and this may have to be discontinued. Continue to follow up for radiation and oncology as previously scheduled. Please take labs above (results to Dr Thomson on Sunday) Kind regards, Dr David Smith Pending Studies at Discharge: No Stand-Alone Forms: My [facility] [employer] Private, Smoking Cessation Medications and DC Order Prescriptions: New atovaquone 750 mg/5 mL suspension 1,500 mg PO DAILY 30 Days Qty: 300 RF: 0 metoprolol succinate 25 mg tablet extended release 24 hr 25 mg PO HS Qty: 30 RF: 0 ascorbic acid (vitamin C) [Vitamin C] 1,000 mg tablet 1 gm PO DAILY 7 Days Qty: 7 RF: 0 vitamin B complex [B Complex-Vitamin B12] Tablet 2 tab PO DAILY 7 Days Qty: 14 RF: 0 Continued acetaminophen [Tylenol] 325 mg capsule 650 mg PO Q4H PRN (Reason: Pain) RF: 0 venlafaxine [Effexor XR] 150 mg capsule,extended release 24hr 150 mg PO DAILY RF: 0 cholecalciferol (vitamin D3) 2,000 unit tablet 2,000 units PO DAILY RF: 0 docusate sodium [Colace] 100 mg capsule 100 mg PO DAILY RF: 0 ondansetron HCl [Zofran] 8 mg tablet 8 mg PO DAILY RF: 0 temozolomide [Temodar] 140 mg capsule 130 mg PO DAILY RF: 0 atorvastatin 40 mg tablet 40 mg PO QPM Qty: 90 RF: 1 venlafaxine 75 mg capsule,extended release 24hr 75 mg PO DAILY Qty: 30 RF: 5 latanoprost 0.005 % drops 1 drops OP DAILY RF: 0 cetirizine 10 mg capsule 10 mg PO DAILY RF: 0 omeprazole 20 mg capsule,delayed release(DR/EC) 20 mg PO DAILY RF: 0 Discontinued dapsone 25 mg tablet 25 mg PO BID RF: 0 atenolol 25 mg tablet 25 mg PO QPM Qty: 90 RF: 1 Discharge Orders: Discharge Order (Routine); Ordered 07/20/19 Ordered By: David Smith Admission Data Admit Date/Time: 07/16/19 16:11 Attending Provider: David Smith Admit Provider: Elva Prasad Primary Care Provider: Libra Connolly Other Providers: Elva Prasad ; Sebastien Thomson Other Interventions: Discharge Summary Assessment (RN) Last Done: 07/20/19 13:40 DC Date/Time DO NOT enter until pt leaves facility: 07/20/19 13:56 Coding Level of Care Code D/C Day Management >30 mins Diagnoses Acquired methemoglobinemia D74.8 Dapsone adverse reaction T37.1X5A Encounter type: initial encounter Hypoxia R09.02 Weakness R53.1 GBM (glioblastoma multiforme) C71.9 Abnormal urinalysis R82.90 Hypertension I10 Hypertension type: essential hypertension Acid reflux K21.9 Esophagitis presence: esophagitis presence not specified Chronic sinusitis J32.9 Sinusitis location: unspecified location Depression F33.9 Depression Type: major depressive disorder Major depression recurrence: recurrent Active/Remission status: remission status unspecified Hyperlipidemia E78.5 Hyperlipidemia type: unspecified Vitamin D deficiency E55.9
== END 2019-07-20 13:56 | disposition home health service (06) | DRG 812 ==
LOC: ED 12:15 → 4W 16:11 → SUATTDRO 16:11 → 4W 16:59 → 2S 07-17 15:05 → 2W 07-19 16:44

== ENCOUNTER 2019-12-14 12:44 | Inpatient (IN) ==
[2019-12-14] MEDS ORDERED: SODIUM CHLORIDE 0.9% 1000ML 1,000 ML IV SCH (13:15)
[2019-12-14] MEDS ORDERED: HYDROmorphone INJ 0.5 MG/0.5 ML SYR IV PRN (14:05)
[2019-12-14 14:22] LABS: Hematocrit (blood only) 22.7 % (37-47); Hemoglobin 7.7 g/dL (12.0-16.0); Immature Granulocytes # (auto) 0.02 K/uL (0.00-0.02); Immature Granulocytes % (auto) 0.3 %; Lymphocytes # (auto) 0.29 K/uL (1.2-3.4); Lymphocytes % (auto) 3.8 %; Mean Corpuscular Hgb Conc 33.9 g/dL (32-36); Mean Corpuscular Volume 97.4 fL (80-100); Mean Platelet Volume 9.6 fL (7.4-10.4); Monocytes # (auto) 0.54 K/uL (0.11-0.59); Neutrophils # (auto) 6.86 K/uL (1.4-6.5); Neutrophils % (auto) 88.9 %; Platelet Count 123 K/uL (130-400); RDW Coefficient of Variation 15.9 % (11.5-14.5); Red Blood Count 2.33 M/uL (4.2-5.4); White Blood Count 7.71 K/uL (4.8-10.8)
--- NOTE | 2019-12-14 14:25 | XRay Report ---
XR chest 1V portable HISTORY: SEPSIS COMPARISON: Chest 07/18/2019. FINDINGS: No pneumothorax. No pleural effusions. The heart is normal in size. No new focal lung conso lidations to suggest pneumonia. No evidence for pulmonary edema. Mild diffuse interstitial thickening which is likely chronic. Left subclavian Port-A-Cath terminates at the distal SVC. IMPRESSION: No acute process. ACT 112: Negative or not required by law. Electronically signed by: Deshawn Bernard M.D. 12/14/2019 2:24 PM
[2019-12-14 14:26] LABS: Partial Thromboplastin Ratio 0.9; Partial Thromboplastin Time 25.1 Seconds (21.0-31.0); Prothrombin Time 10.3 Seconds (9.0-12.0)
[2019-12-14 14:36] LABS: Alanine Aminotransferase 64 U/L (12-78); Albumin Level 3.1 gm/dl (3.4-5.0); Aspartate Aminotransferase 24 U/L (15-37); BUN Creatinine Ratio 22.4 (10-20); Blood Urea Nitrogen 17 mg/dl (7-18); Calcium 8.7 mg/dl (8.5-10.1); Carbon Dioxide 26 mmol/L (21-32); Chloride 107 mmol/L (98-107); Creatinine Clr Calc Pharmacy 60.9 ml/min; Est GFR (African American) 95.8; Est GFR (Non-African American) 82.7; Glucose 130 mg/dl (70-99); Magnesium 1.9 mg/dl (1.8-2.4); Potassium 3.8 mmol/L (3.5-5.1); Sodium 143 mmol/L (136-145)
[2019-12-14 14:41] LABS: Albumin Globulin Ratio 0.9 (0.9-2); Alkaline Phosphatase 60 U/L (45-117); Bilirubin,Total 0.6 mg/dl (0.2-1); Globulin 3.4 gm/dl (2.5-4.0); Total Protein 6.5 gm/dl (6.4-8.2); Troponin I < 0.015 ng/ml (0-0.045)
[2019-12-14 14:42] LABS: Ovalocytes 1+
[2019-12-14 14:51] LABS: Appearance Urine Clear (Clear); Bacteria Urine Automated Negative (Negative); Bilirubin Urine Negative (Negative); Blood Urine Negative (Negative); Cast Urine Automated 0 /lpf (0-5); Color Urine Yellow; Glucose Urine UA Negative (Negative); Ketones Urine Negative (Negative); Leukocyte Esterase Urine Trace (Negative); Nitrite Urine Negative (Negative); RBC Urine Automated 0-4 /hpf (0-4); Specific Gravity Urine 1.022 (1.000-1.030); Urobilinogen Urine Positive (Negative); pH Urine 8.5 (4.5-7.5)
[2019-12-14 15:01] LABS: Protein Urine Negative (Negative); Sulfosalicylic Acid Urine Negative (Negative)
--- NOTE | 2019-12-14 15:12 | CT Scan Report ---
HEAD CT NONCONTRAST CT DOSE: 638.56 mGycm HISTORY: confusion, recent GBM resection TECHNIQUE: Multiaxial CT images of the head were performed without the use of intravenous contrast. A utomated exposure control was utilized for this study. A dose lowering technique was utilized adheri ng to the principles of ALARA. Comparison: Head CT 06/02/2019. Findings: Trace fluid within the left sphenoid sinus. The mastoid air cells are clear. Small amount o f gas within the left infratemporal fossa and a small amount of pneumocephalus. This is likely due to recent postoperative change given the interval left-sided craniotomy. Mild soft tissue swelling with in the left frontal scalp with a small amount of gas. This is also likely secondary to the postoperat adele change. Status post resection of the left frontal lobe mass. There are nodular hyperdense foci al john the periphery of the resection bed. Dominant focus on image 11 within the inferior aspect of the resection bed measures 2.5 cm. Right anterior midline shift measures up to 6 mm. This is improved in the interval. Vasogenic edema within the left frontal lobe has slightly progressed. There is improved mass effect along the frontal horns of the lateral ventricles. Impression: 1. Status post resection of the left frontal lobe mass. 2. There are nodular hyperdense foci seen along the periphery of the resection bed as described above with the largest focus measuring 2.5 cm. The appearance is suspicious for recurrent/residual hemorrh agic tumor. Nodular foci of hemorrhage at the resection bed could also have a similar appearance. [address] follow-up recommended to ensure stability. 3. Slight progression of the left frontal lobe vasogenic edema which could also represent evidence fo r progressive tumor. 4. Mild right midline shift measuring 6 mm. This has improved in the interval. ACT 112: Negative or not required by law. Electronically signed by: Deshawn Bernard M.D. 12/14/2019 3:11 PM
--- NOTE | 2019-12-14 15:15 | Emergency Department Note ---
Impression & Plan Confusion, Generalized weakness, Anemia, Vasogenic cerebral edema ED Provider Note INFORMANT: [Patient] daughter ED PROVIDER(S): Brodie Leonard MD CHIEF COMPLAINT: Confusion PLAN: Disposition: Admitted Condition: [Good] MEDICAL DECISION MAKING: Patient presented with confusion since discharge from [facility] after GBM resection. She denied any significant pain. The patient has had low- grade temperature at home. Her incision had some scant redness but otherwise was clean dry and intact. Family states it looks the same as it did when she came home. The patient had a normal EKG and chest x-ray. The patient was uncomfortable and has been using her oral pain medication at home. She was due. She was given a dose of IV Dilaudid 0.25 mg instead. On reassessment she felt significantly better. The patient CBC revealed a significant anemia but no leukocytosis. Chemistry panel, LFTs and troponin were unremarkable. Urinalysis negative. Head CT performed. Patient was hydrated. The patient has postsurgical changes noted with residual tumor or possible hemorrhagic jolly earance to the resection bed. The area does not soccer player and after discussion with her neurosurgeon, Dr. Orona the findings were not unexpected. He recommended repeat imaging and increasing her Decadron with a dose of 4 mg 4 times daily. The patient was also recommended for a dose of IV Decadron 10 mg and this was done. He also recommended evaluation for inpatient rehabilitation. I did discuss this with the patient and family. Family was very much in support of this measure. Consultation was made with the hospitalist service and I discussed the case with Dr. Love. He will evaluate the patient for admission here, repeat CT imaging, and further management. [facility] did note that they would be available if there is anything that changes with her condition that they could be notified and if necessary the patient could be transferred. Triage Nursing notes reviewed and agree them. [Additional history obtained from] patient's daughter Vital Signs: reviewed and remarkable for [no significant abnormalities] Differential diagnosis: Complication of recent brain surgery, infection, hypoglycemia, electrolyte abnormalities, overdose, toxicologic, cardiac sources, intracerebral event, neurologic, trauma, as well as other pathologies. Diagnostics interpreted by me: ECG: Rate: 97 Rhythm:Normal sinus Center:Normal QRS:Normal ST segements:No elevation or depression Other:No PACs or PVCs Cardiac Monitoring: Cardiac monitoring ordered by me: The patient was placed on continuous cardiac monitoring and observed. It revealed a normal sinus rhythm at 92 beats per minute without ectopy or evidence of dysrhythmia. Imaging studies: Chest x-ray. Findings: A chest x-ray was performed and revealed no pneumothorax, effusion, infiltrate, pulmonary edema, free air under the diaphragm, or wide mediastinum. Impression: No acute disease. Consultation(s[facility] HPI: The patient is a 69 year old female who presents to the Emergency Room with complaints of confusion. This started over the last 2 days and is progressing per family. The patient also notes the following associated symptoms, low-grade fever. The patient has taken no medication for relieving factors. Current pain is rated as 0/10. Patient recently had GBM resection done at [facility] last week. She was discharged the day before yesterday. Upon returning home the patient seemed to be doing well. She ambulated on her own. The next day she was very fatigued and family noted some slight confusion. Today they state it was much worse. Home health noted she had a slight low-grade temperature. Pt denies LOC, headache, chills, diaphoresis, visual changes, neck pain, chest pain, breathing difficulties, nausea, vomiting, abdominal pain, back pain, melena, hematochezia, urinary symptoms, numbness, lymphadenopathy, rash, or other complaints. ROS: See above HPI for pertinent positives & negatives. A total of [10] systems reviewed and were otherwise negative. PAST MEDICAL HISTORY:[See Below] GBM, hypercholesterolemia PAST SURGICAL HISTORY:[See Below]GBM resection FAMILY HISTORY:[See Below] SOCIAL HISTORY:[See Below] HOME MEDICATIONS:[See Below] ALLERGIES:[See Below] VITALS:[See Below] PHYSICAL EXAMINATION: GENERAL: Awake, alert, tired-appearing, in no distress HENT: Surgical incision present. Clean dry and intact. There is some slight redness over the lateral half. Family states this is same as when she arrived home. No associated tenderness. Oropharynx unremarkable. EYES: Normal conjunctiva. Sclera non-icteric. NECK: Inspection normal. Non-tender. Supple. No nuchal rigidity. FROM. No masses. RESPIRATORY: Clear to auscultation. No wheezes. No rales. Normal respiratory effort. CARDIAC: Normal rate. Normal rhythm. No murmurs. No rubs. Extremities warm and well perfused. Pulses equal. No JVD. GI: Soft, non-distended. No tenderness to palpation. No rebound or guarding. No masses. RECTAL: Deferred. MUSCULOSKELETAL: Atraumatic. Chest examination reveals no tenderness. The back is symmetrical on inspection without obvious abnormality. There is no CVA tenderness to palpation. No joint edema. LOWER EXTREMITIES: Calves are equal size bilaterally and non-tender. No edema. No discoloration. NEURO: Normal sensorium. No sensory or motor deficits noted. SKIN: No rash or jaundice noted. ED COURSE: [Critical Care:] [None] Brodie Leonard MD Past Med/Surg History Medical History (Updated 12/14/19 @ 15:08 by Brodie Leonard MD) Acid reflux Anxiety Arthritis Atypical nevi Chronic sinusitis Depression GBM (glioblastoma multiforme) (Chronic 05/2019) Glaucoma Hyperlipidemia Hypertension Mitral valve prolapse syndrome Normocytic anemia Obsessive compulsive disorder Osteoporosis Prediabetes Psoriasis Seasonal allergies Vitamin D deficiency Surgical History (Updated 10/01/19 @ 13:20 by Libra Connolly DO) H/O total hysterectomy with bilateral salpingo-oophorectomy (BSO) (1994) History of appendectomy Hx of cataract surgery (2015) Bilateral S/P craniotomy (06/06/19) Left craniotomy with mass resection, Dr. Grimaldo at [facility] [place], [place] S/P hip arthroscopy (02/25/19) L hip w/ labral debridement, trochanteric bursectomy S/P tonsillectomy Family History Mother , 81yo COPD (chronic obstructive pulmonary disease) Osteoporosis Father , 66yo Cardiac disorder Prostate cancer Myocardial infarction Grandfather (Maternal) Diabetes Son Prediabetes Brother No problems noted. Brother No problems noted. Sister No problems noted. Sister No problems noted. Sister No problems noted. Son Hypertension Daughter No problems noted. 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 Feels Safe at Home: Yes Smoking Status: Unknown if ever smoked Hx Alcohol Use: No Hx Substance Use: No Childhood Exposure to Second-Hand Smoke: No caffeine: Yes (2 cups/day) during the past year weight has: remained stable Dental Care, Regularly: Yes Physical Activity Frequency: Does not Exercise Seatbelt Use: always Sunscreen Use: Yes Allergies Allergies Allergy/AdvReac Type Severity Reaction Status Date / Time dapsone Allergy Severe Difficulty Verified 12/14/19 16:01 Breathing Penicillins Allergy Unknown HIVES Verified 12/14/19 16:01 Sulfa (Sulfonamide Allergy Unknown HIVES Verified 12/14/19 16:01 Antibiotics) Home Meds Home Medications Medication Instructions Recorded Confirmed acetaminophen 325 mg capsule 650 mg PO Q4H PRN cap 06/20/19 12/14/19 cholecalciferol (vitamin D3) 50 2,000 units PO DAILY 06/20/19 12/14/19 mcg (2,000 unit) tablet latanoprost 0.005 % eye drops 1 drops OP DAILY ml 06/20/19 12/14/19 docusate sodium 100 mg capsule 100 mg PO DAILY 07/07/19 12/14/19 ondansetron HCl 8 mg tablet 8 mg PO DAILY tab 07/07/19 12/14/19 cetirizine 10 mg capsule 10 mg PO DAILY cap 07/10/19 12/14/19 temozolomide 140 mg capsule 130 mg PO .ON HOLD cap 07/14/19 12/14/19 ascorbic acid (vitamin C) 1,000 mg 1 gm PO DAILY tab 07/28/19 12/14/19 tablet vitamin B complex 2 cap PO DAILY 07/28/19 12/14/19 dexamethasone 4 mg PO .TAPER UD 12/14/19 12/14/19 levetiracetam [Keppra] 500 mg PO BID 12/14/19 12/14/19 oxycodone [Roxicodone] 5 mg PO Q6 PRN 12/14/19 12/14/19 Previous Rx's Medication Instructions Recorded venlafaxine 75 mg capsule,extended 75 mg PO DAILY #30 cap 07/11/19 release 24 hr metoprolol succinate 25 mg 25 mg PO HS #90 tab 08/18/19 tablet,extended release 24 hr atorvastatin 40 mg tablet 40 mg PO QPM #90 tab 09/15/19 venlafaxine 150 mg 150 mg PO DAILY #90 cap 09/15/19 capsule,extended release 24 hr omeprazole 20 mg capsule,delayed 20 mg PO DAILY #90 cap 11/17/19 release Results & Data (ED) Vital Signs Vital Signs - 24 hr 12/14/19 12:54 12/14/19 13:40 12/14/19 15:00 Temperature 36.8 C Temperature Source Oral Pulse Rate [Left] 73 Pulse Rhythm [Left] Regular Pulse Strength [Left] Normal Respiratory Rate 18 16 Respiratory Effort / Characteristics Non-Labored Spontaneous Non-Labored Spontaneous Nasal Congestion Respiratory Depth Normal Normal Respiratory Pattern Regular Blood Pressure 155/79 H Blood Pressure [Left Arm] 143/74 H Blood Pressure Mean 104 Blood Pressure Mean [Left Arm] 97 Blood Pressure Position Lying Blood Pressure Position [Left Arm] Lying Pulse Oximetry 96 98 Oxygen Delivery Method Room Air Room Air Room Air Sepsis Recent Fever Within 48 Hours Yes Sepsis New/Unexplained Change in Mental Status Yes Sepsis Action Taken by Nursing Physician Notified Laboratory Data Result diagrams: 12/14/19 13:59 12/14/19 13:59 Lab Results 12/14/19 12/14/19 12/14/19 Range/Units 13:59 13:59 13:59 WBC 7.71 (4.8-10.8) K/uL RBC 2.33 L (4.2-5.4) M/uL Hgb 7.7 L (12.0-16.0) g/dL Hct 22.7 L (37-47) % MCV 97.4 (80-100) fL MCH 33.0 (25-34) pg MCHC 33.9 (32-36) g/dL RDW Std Deviation 56.0 H (36.4-46.3) fL RDW Coeff of Flaca 15.9 H (11.5-14.5) % Plt Count 123 L (130-400) K/uL MPV 9.6 (7.4-10.4) fL Immature Gran % (Auto) 0.3 % Neut % (Auto) 88.9 % Lymph % (Auto) 3.8 % [place] % (Auto) 7.0 % Eos % (Auto) 0.0 % Baso % (Auto) 0.0 % Neut # (Auto) 6.86 H (1.4-6.5) K/uL Lymph # (Auto) 0.29 L (1.2-3.4) K/uL [place] # (Auto) 0.54 (0.11-0.59) K/uL Eos # (Auto) 0.00 (0-0.5) K/uL Baso # (Auto) 0.00 (0-0.2) K/uL Immature Gran # (Auto) 0.02 (0.00-0.02) K/uL Ovalocytes 1+ PT 10.3 (9.0-12.0) Seconds INR 1.0 (0.9-1.1) APTT 25.1 (21.0-31.0) Seconds PTT Ratio 0.9 Sodium 143 (136-145) mmol/L Potassium 3.8 (3.5-5.1) mmol/L Chloride 107 (98-107) mmol/L Carbon Dioxide 26 (21-32) mmol/L Anion Gap 10.0 (3-11) BUN 17 (7-18) mg/dl Creatinine 0.74 (0.6-1.2) mg/dl Est Cr Clr Drug Dosing 60.9 ml/min Est GFR ( Amer) 95.8 Est GFR (Non-Af Amer) 82.7 BUN/Creatinine Ratio 22.4 H (10-20) Glucose 130 H (70-99) mg/dl Lactate (0.4-2.0) mmol/L Calcium 8.7 (8.5-10.1) mg/dl Magnesium 1.9 (1.8-2.4) mg/dl Total Bilirubin 0.6 (0.2-1) mg/dl AST 24 (15-37) U/L ALT 64 (12-78) U/L Alkaline Phosphatase 60 (45-117) U/L Troponin I < 0.015 (0-0.045) ng/ml Total Protein 6.5 (6.4-8.2) gm/dl Albumin 3.1 L (3.4-5.0) gm/dl Globulin 3.4 (2.5-4.0) gm/dl Albumin/Globulin Ratio 0.9 (0.9-2) Urine Color Urine Appearance (Clear) Urine pH (4.5-7.5) Ur Specific [place] (1.000-1.030) Urine Protein (Negative) Urine Glucose (UA) (Negative) Urine Ketones (Negative) Urine Blood (Negative) Urine Nitrite (Negative) Urine Bilirubin (Negative) Urine Urobilinogen (Negative) Ur Leukocyte Esterase (Negative) Urine WBC (Auto) (0-5) /hpf Urine RBC (Auto) (0-4) /hpf U Hyaline Cast (Auto) (0-5) /lpf U Epithel Cells (Auto) (0-5) /lpf Urine Bacteria (Auto) (Negative) 12/14/19 12/14/19 Range/Units 13:59 14:40 WBC (4.8-10.8) K/uL RBC (4.2-5.4) M/uL Hgb (12.0-16.0) g/dL Hct (37-47) % MCV (80-100) fL MCH (25-34) pg MCHC (32-36) g/dL RDW Std Deviation (36.4-46.3) fL RDW Coeff of Flaca (11.5-14.5) % Plt Count (130-400) K/uL MPV (7.4-10.4) fL Immature Gran % (Auto) % Neut % (Auto) % Lymph % (Auto) % [place] % (Auto) % Eos % (Auto) % Baso % (Auto) % Neut # (Auto) (1.4-6.5) K/uL Lymph # (Auto) (1.2-3.4) K/uL [place] # (Auto) (0.11-0.59) K/uL Eos # (Auto) (0-0.5) K/uL Baso # (Auto) (0-0.2) K/uL Immature Gran # (Auto) (0.00-0.02) K/uL Ovalocytes PT (9.0-12.0) Seconds INR (0.9-1.1) APTT (21.0-31.0) Seconds PTT Ratio Sodium (136-145) mmol/L Potassium (3.5-5.1) mmol/L Chloride (98-107) mmol/L Carbon Dioxide (21-32) mmol/L Anion Gap (3-11) BUN (7-18) mg/dl Creatinine (0.6-1.2) mg/dl Est Cr Clr Drug Dosing ml/min Est GFR ( Amer) Est GFR (Non-Af Amer) BUN/Creatinine Ratio (10-20) Glucose (70-99) mg/dl Lactate 0.9 (0.4-2.0) mmol/L Calcium (8.5-10.1) mg/dl Magnesium (1.8-2.4) mg/dl Total Bilirubin (0.2-1) mg/dl AST (15-37) U/L ALT (12-78) U/L Alkaline Phosphatase (45-117) U/L Troponin I (0-0.045) ng/ml Total Protein (6.4-8.2) gm/dl Albumin (3.4-5.0) gm/dl Globulin (2.5-4.0) gm/dl Albumin/Globulin Ratio (0.9-2) Urine Color Yellow Urine Appearance Clear (Clear) Urine pH 8.5 H (4.5-7.5) Ur Specific [place] 1.022 (1.000-1.030) Urine Protein Negative (Negative) Urine Glucose (UA) Negative (Negative) Urine Ketones Negative (Negative) Urine Blood Negative (Negative) Urine Nitrite Negative (Negative) Urine Bilirubin Negative (Negative) Urine Urobilinogen Positive H (Negative) Ur Leukocyte Esterase Trace H (Negative) Urine WBC (Auto) 1-5 (0-5) /hpf Urine RBC (Auto) 0-4 (0-4) /hpf U Hyaline Cast (Auto) 0 (0-5) /lpf U Epithel Cells (Auto) 10-20 H (0-5) /lpf Urine Bacteria (Auto) Negative (Negative) Administered Medications Sodium Chloride (Nss 1000ml) 1,000 mls @ 150 mls/hr IV .[id number] [facility] Stop: 01/13/20 13:14 Last Admin: 12/14/19 14:10 Dose: 150 mls/hr Documented by: [id number] Discontinued Medications Dexamethasone Sodium Phosphate (Decadron Pf) 10 mg IV NOW ONE Stop: 12/14/19 15:44 Last Admin: 12/14/19 15:54 Dose: 10 mg Documented by: [id number] Discharge Plan Visit Data Chief Complaint: Confusion Stated Complaint: lower back pain/ some confusion ED Provider: Brodie Leonard Discharge Problem: Confusion, Generalized weakness, Anemia, Vasogenic cerebral edema Forms Stand Alone Forms: My [facility] Prescriptions Prescriptions: No Action acetaminophen [Tylenol] 325 mg capsule 650 mg PO Q4H PRN (Reason: Pain) RF: 0 cholecalciferol (vitamin D3) 2,000 unit tablet 2,000 units PO DAILY RF: 0 docusate sodium [Colace] 100 mg capsule 100 mg PO DAILY RF: 0 ondansetron HCl [Zofran] 8 mg tablet 8 mg PO DAILY RF: 0 temozolomide [Temodar] 140 mg capsule 130 mg PO .ON HOLD RF: 0 ascorbic acid (vitamin C) 1,000 mg tablet 1 gm PO DAILY RF: 0 vitamin B complex [Vitamins B Complex] Capsule 2 cap PO DAILY RF: 0 venlafaxine 75 mg capsule,extended release 24hr 75 mg PO DAILY Qty: 30 RF: 5 metoprolol succinate 25 mg tablet extended release 24 hr 25 mg PO HS Qty: 90 RF: 1 atorvastatin 40 mg tablet 40 mg PO QPM Qty: 90 RF: 1 venlafaxine [Effexor XR] 150 mg capsule,extended release 24hr 150 mg PO DAILY Qty: 90 RF: 1 omeprazole 20 mg capsule,delayed release(DR/EC) 20 mg PO DAILY Qty: 90 RF: 1 latanoprost 0.005 % drops 1 drops OP DAILY RF: 0 cetirizine 10 mg capsule 10 mg PO DAILY RF: 0 levetiracetam [Keppra] 500 mg tablet 500 mg PO BID RF: 0 dexamethasone 4 mg tablet 4 mg PO .TAPER UD RF: 0 oxycodone [Roxicodone] 5 mg tablet 5 mg PO Q6 PRN (Reason: Pain) RF: 0
[2019-12-14] MEDS ORDERED: DEXAMETHASONE **PF** INJ 10 MG/ML VIAL IV ONE (15:43)
--- NOTE | 2019-12-14 17:15 | History & Physical Report ---
Date of Service December 14, 2019 Assessment & Plan (1) GBM (glioblastoma multiforme): S/p second resection with Dr. Lukasz Grimaldo at [facility]. Just discharged on 12/12/2019 with deterioration the next day. ED provider spoke with Dr. Grimaldo who feels this may be due to post-op swelling/bleeding. Discussed with the patient and family that we do NOT have NSGY at [facility], and therefore there is some risk with remaining here. Patient, , and daughter prefer remaining here for now, acknowledging risks. - CT head on admission showed nodular hyperdense foci along the periphery of the resection bed with the largest focus measuring 2.5 cm, concerning for hemorrhagic tumor. - Recommending dexamethasone 4 mg IV Q6h for now - Repeat head CT in the morning - Will get neuro-checks overnight - Continue Keppra; will get level - Neurology consult (2) Confusion: Likely from post-operative swelling. No indication of focal infection despite patient reporting subjective fever. CXR & UA on admission were both clear. Surgical site looks uninfected. No skin lesions/erythema to suggestion cellulitis. - Monitor closely; start broad spectrum abx if concern for infection. - Follow blood cultures drawn in the ED (3) Normocytic anemia: Baseline hgb is ~12.3. Hgb was 7.7 on admission. No signs of bleeding per family (no bruising, no melena). Received last chemo ~1 1/2 weeks ago. is unsure of what the chemotherapy is, though it is sent from [facility] and given at home by the family. Likely combination of anemia of chronic disease, post- operative blood loss, and chemotherapy. - Patient T&S in the ED with the present and agreeing. - Repeat hgb this evening; T&S sent. - Transfusion threshold of 7 for now. (4) Glaucoma: - Continue home latanoprost (5) Depression: Patient showing apathy right now, but not overtly depressed or expressing self-harm. - Continue venlafaxine (6) Hypertension: BP presently 145/75. - Continue home metoprolol (7) DVT prophylaxis: SCDs - Clear and obvious contraindication to heparin given her GBM and post-operative bleeding History of Present Illness Primary Care Provider: Libra Connolly, 69yo F w/ hx of HTN and glioblastoma multiforme s/p 2 resections who presents for lethargy and weakness after being discharged from [facility] after her second resection. She was discharged on Sunday (December 11) in the evening after declining rehab and wanting to go home. Her daughter reports that she was in good spirits at [facility], was aware of her care and surroundings, and was anxious to get home. That evening, she was able to walk up her steps while holding the guardrails. However, the daughter was not able to see her mother at [facility] because they only allow 1 unique visitor per day. The next morning, the daughter stopped by at her mother's house and found her in bed, very frail and weak. She was also incontinent of bowel and bladder. She had become somewhat confused or slow and refused to eat or drink much. For these reasons, the family brought the patient in to the ED. The ED provider got a CT head which showed resection of the left frontal lobe mass, along with nodular hyperdense foci seen along the periphery of the resection bed as described above with the largest focus measuring 2.5 cm, concerning for hemorrhagic tumor. The ED provider spoke with Dr. Lukasz Grimaldo (NSGY at [facility]) who recommended increasing her dexamethasone to 4mg IV Q6h and monitoring with repeat head CTs. Allergies Allergy/AdvReac Type Severity Reaction Status Date / Time dapsone Allergy Severe Difficulty Verified 12/14/19 16:01 Breathing Penicillins Allergy Unknown HIVES Verified 12/14/19 16:01 Sulfa (Sulfonamide Allergy Unknown HIVES Verified 12/14/19 16:01 Antibiotics) Home Medications Home Medications Medication Instructions Recorded Confirmed Type acetaminophen 325 mg capsule 650 mg PO Q4H PRN cap 06/20/19 12/14/19 History cholecalciferol (vitamin D3) 50 2,000 units PO DAILY 06/20/19 12/14/19 History mcg (2,000 unit) tablet latanoprost 0.005 % eye drops 1 drops OP DAILY ml 06/20/19 12/14/19 History docusate sodium 100 mg capsule 100 mg PO DAILY 07/07/19 12/14/19 History ondansetron HCl 8 mg tablet 8 mg PO DAILY tab 07/07/19 12/14/19 History cetirizine 10 mg capsule 10 mg PO DAILY cap 07/10/19 12/14/19 History venlafaxine 75 mg capsule,extended 75 mg PO DAILY #30 cap 07/11/19 12/14/19 Rx release 24 hr temozolomide 140 mg capsule 130 mg PO .ON HOLD cap 07/14/19 12/14/19 History ascorbic acid (vitamin C) 1,000 mg 1 gm PO DAILY tab 07/28/19 12/14/19 History tablet vitamin B complex 2 cap PO DAILY 07/28/19 12/14/19 History metoprolol succinate 25 mg 25 mg PO HS #90 tab 08/18/19 12/14/19 Rx tablet,extended release 24 hr atorvastatin 40 mg tablet 40 mg PO QPM #90 tab 09/15/19 12/14/19 Rx venlafaxine 150 mg 150 mg PO DAILY #90 cap 09/15/19 12/14/19 Rx capsule,extended release 24 hr omeprazole 20 mg capsule,delayed 20 mg PO DAILY #90 cap 11/17/19 12/14/19 Rx release dexamethasone 4 mg PO .TAPER UD 12/14/19 12/14/19 History levetiracetam [Keppra] 500 mg PO BID 12/14/19 12/14/19 History oxycodone [Roxicodone] 5 mg PO Q6 PRN 12/14/19 12/14/19 History Past Med/Surg History Medical History Acid reflux Anxiety Arthritis Atypical nevi Chronic sinusitis Depression GBM (glioblastoma multiforme) (Chronic 05/2019) Glaucoma Hyperlipidemia Hypertension Mitral valve prolapse syndrome Normocytic anemia Obsessive compulsive disorder Osteoporosis Prediabetes Psoriasis Seasonal allergies Vitamin D deficiency Surgical History H/O total hysterectomy with bilateral salpingo-oophorectomy (BSO) (1994) History of appendectomy Hx of cataract surgery (2015) Bilateral S/P craniotomy (06/06/19) Left craniotomy with mass resection, Dr. Grimaldo at [facility] S/P hip arthroscopy (02/25/19) L hip w/ labral debridement, trochanteric bursectomy S/P tonsillectomy Family History Mother , 81yo COPD (chronic obstructive pulmonary disease) Osteoporosis Father , 66yo Cardiac disorder Prostate cancer Myocardial infarction Grandfather (Maternal) Diabetes Son Prediabetes Brother No problems noted. Brother No problems noted. Sister No problems noted. Sister No problems noted. Sister No problems noted. Son Hypertension Daughter No problems noted. 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 Feels Safe at Home: Yes Smoking Status: Unknown if ever smoked Hx Alcohol Use: No Hx Substance Use: No Childhood Exposure to Second-Hand Smoke: No caffeine: Yes (2 cups/day) during the past year weight has: remained stable Dental Care, Regularly: Yes Physical Activity Frequency: Does not Exercise Seatbelt Use: always Sunscreen Use: Yes Review of Systems Review of Systems: All systems reviewed & are unremarkable except as noted in HPI & below Physical Exam Constitutional: WD/WN, vitals as above Eyes: EOM intact bilaterally; no conjunctival abnormality ENMT: external ear and nose normal, oropharynx normal Neck: trachea midline, no thyromegaly normal visual inspection Respiratory: normal respiratory effort, lungs clear to auscultation no res piratory distress Cardiovascular: RRR, no murmur, no edema Gastrointestinal (Abdomen): Inspection/Auscultation: abdomen normal to inspection; abdomen not distended Musculoskeletal: no cyanosis or clubbing, extremities motor strength 5/5 Skin: no rashes, warm and dry Neurologic: moves all extremities and awake Psychiatric: Orientation: alert, oriented x 3 and cooperative Affect: + blunted affect Cognition: language grossly intact Results & Data Results & Data ([facility]) Vital Signs (Past 12 Hours) Vital Signs Temp Pulse Resp BP BP Pulse Ox 12/14/19 15:00 73 16 143/74 H 98 12/14/19 12:54 36.8 C 18 155/79 H 96 Code Status & VTE Plan VTE Prophylaxis Plan VTE Prophylaxis will be ordered: Yes PG Care Time/CCT Total # of Minutes Spent Total Time Spent with Patient: Total time spent is greater than 50% in coor dination of care (as documented) at patient's floor/unit and/or counseling patient: Coding Level of Care Code 24565 Initial Inpt Care Lvl 3 Diagnoses GBM (glioblastoma multiforme) C71.9 Confusion R41.0 Normocytic anemia D64.9 Glaucoma H40.9 Depression F33.9 Depression Type: major depressive disorder Major depression recurrence: recurrent Active/Remission status: remission status unspecified Hypertension I10 Hypertension type: essential hypertension DVT prophylaxis Z29.9 (1) Depression Depression Type: major depressive disorder Major depression recurrence: recurrent Active/Remission status: remission status unspecified Qualified Code (s): F33.9 - Major depressive disorder, recurrent, unspecified (2) Hypertension Hypertension type: essential hypertension Qualified Code(s): I10 - Essential (primary) hypertension
[2019-12-14] MEDS ORDERED: DEXAMETHASONE SOD INJ 4 MG/ML VIAL IV SCH (17:49)
[2019-12-14] MEDS ORDERED: ACETAMINOPHEN 325 MG TAB PO PRN (17:52)
[2019-12-14] MEDS ORDERED: OXYCODONE HCL IR 5 MG TAB (IMMEDIATE RELEASE) PO PRN (17:53)
[2019-12-14] MEDS: levETIRAcetam 500 MG TAB PO SCH (20:49)
[2019-12-14] MEDS: ATORVASTATIN 40 MG TAB PO SCH (20:49)
[2019-12-14] MEDS: METOPROLOL SUCC 25MG EXT REL TAB PO SCH (20:49)
[2019-12-14] MEDS: DEXAMETHASONE SOD PHOSPHATE 4 MG in SYRINGE 0 ML IV SCH (20:50)
--- NOTE | 2019-12-14 23:14 | Electrocardiogram Report ---
Test Reason : Blood Pressure : / mmHG Vent. Rate : 097 BPM Atrial Rate : 097 BPM P-R Int : 116 ms QRS Dur : 074 ms QT Int : 352 ms P-R-T Axes : 021 060 073 degrees QTc Int : 447 ms Normal sinus rhythm Normal ECG When compared with ECG of 16-JUL-2019 12:46, No significant change was found Confirmed by Isaac Cleaning ([id number]) on 12/14/2019 11:14:03 PM Referred By: REFERRED SELF Confirmed By:Isaac Cleaning
[2019-12-15] MEDS ORDERED: HEPARIN 100 UNIT/ML 5ML FLUSH FLUSH PRN (01:26)
[2019-12-15] MEDS: DEXAMETHASONE SOD PHOSPHATE 4 MG in SYRINGE 0 ML IV SCH ×4 (03:51→21:55)
[2019-12-15 05:56] LABS: Hematocrit (blood only) 25.2 % (37-47); Hemoglobin 8.6 g/dL (12.0-16.0); Mean Corpuscular Hemoglobin 33.3 pg (25-34); Mean Corpuscular Hgb Conc 34.1 g/dL (32-36); Mean Corpuscular Volume 97.7 fL (80-100); Mean Platelet Volume 9.2 fL (7.4-10.4); Platelet Count 109 K/uL (130-400); RDW Coefficient of Variation 15.7 % (11.5-14.5); RDW Standard Deviation 55.4 fL (36.4-46.3); Red Blood Count 2.58 M/uL (4.2-5.4); White Blood Count 6.64 K/uL (4.8-10.8)
[2019-12-15 06:34] LABS: BUN Creatinine Ratio 33.1 (10-20); Calcium 8.6 mg/dl (8.5-10.1); Creatinine Clr Calc Pharmacy 71.6 ml/min; Est GFR (African American) 106.1; Est GFR (Non-African American) 91.5; Magnesium 2.1 mg/dl (1.8-2.4); Phosphorus 3.8 mg/dl (2.5-4.9); Potassium 4.1 mmol/L (3.5-5.1)
--- NOTE | 2019-12-15 08:23 | CT Scan Report ---
HEAD CT NONCONTRAST CT DOSE: 614.27 mGy.cm HISTORY: GBM s/p resection; altered mental status TECHNIQUE: Multiaxial CT images of the head were performed without the use of intravenous contrast. A utomated exposure control was utilized for this study. A dose lowering technique was utilized adheri ng to the principles of ALARA. Comparison: Head CT 12/14/2019. Findings: Trace fluid level within the left sphenoid sinus, unchanged. The mastoid air cells are gianni r. There are again noted postoperative changes consistent with a recent left frontal craniotomy. The patient is status post resection of the left frontal lobe mass. Pneumocephalus remains unchanged and is consistent with postoperative change. Multiple lobular hyperdense foci within the left frontal lob e resection bed appears similar to the prior study. There is persistent vasogenic edema involving the majority of the left frontal lobe. There is been interval development in a small amount of intravent ricular hemorrhage within the occipital horns of the bilateral lateral ventricles. Therefore, the lob ular hypodense foci within the resection bed favor intracranial hemorrhage. Hemorrhagic tumor recurre nce cannot be excluded. Mild right midline shift of approximately 6 mm is also unchanged. There is no acute infarct. Impression: 1. Interval development of a small amount of intraventricular hemorrhage within the occipital horns o f the lateral ventricles. Therefore, the lobular hyperdense foci along the periphery of the left fron holli lobe resection bed favor intracranial hemorrhage. These remain unchanged. Hemorrhagic tumor recur rence is considered less likely but not entirely excluded. Continued [address] follow-up r ecommended. 2. Postoperative changes consistent with resection of a left frontal lobe lesion. 3. These findings were called/faxed to the referring physician following dictation. ACT 112: Negative or not required by law. Electronically signed by: Deshawn Bernard M.D. 12/15/2019 8:22 AM
[2019-12-15] MEDS: PANTOprazole 40 MG TAB PO SCH (08:39)
[2019-12-15] MEDS: VITAMIN B COMPLEX TAB PO SCH (08:40)
[2019-12-15] MEDS: levETIRAcetam 500 MG TAB PO SCH ×2 (08:41→21:54)
[2019-12-15] MEDS: ASCORBIC ACID 500 MG TAB PO SCH (08:41)
[2019-12-15] MEDS: LATANOPROST 0.005% OP SOLN 2.5 ML BTL OP SCH (08:41)
[2019-12-15] MEDS ORDERED: VENLAFAXINE HCL XR 150 MG CAPXR PO SCH (09:00)
[2019-12-15] MEDS: VENLAFAXINE HCL XR 75 MG CAPXR PO SCH (10:20)
[2019-12-15] MEDS: VENLAFAXINE HCL XR 150 MG CAPXR PO SCH (10:21)
--- NOTE | 2019-12-15 14:54 | Hospitalist Progress Note ---
Date of Service December 15, 2019 Assessment & Plan (1) GBM (glioblastoma multiforme): S/p second resection with Dr. Lukasz Grimaldo at [facility]. Just discharged on 12/12/2019 with deterioration the next day. ED provider spoke with Dr. Grimaldo who feels this may be due to post-op swelling/bleeding. Discussed with the patient and family that we do NOT have NSGY at [facility], and therefore there is some risk with remaining here. Patient, , and daughter prefer remaining here for now, acknowledging risks. Compression of brain in setting of postoperative swelling or progression of GBM. Cerebral/Vasogenic edema in setting of postoperative swelling or GBM. - CT head on admission showed nodular hyperdense foci along the periphery of the resection bed with the largest focus measuring 2.5 cm, concerning for hemorrhagic tumor. CT head today is stable. Discussed with [facility] who report this is expected post-operative changes. Images pushed to [facility] and reviewed by Dr. Grimaldo. - Continue dexamethasone 4 mg IV Q6h for now - Repeat head CT in the morning - Continue neuro-checks overnight - Continue Keppra - Palliative care consult (2) Confusion: Metabolic encephalopathy due to anemia, cerebral edema, and GBM. Likely from post-operative swelling. No indication of focal infection despite patient reporting subjective fever. CXR & UA on admission were both clear. Surgical site looks uninfected. No skin lesions/erythema to suggestion cellulitis. - Monitor closely; start broad spectrum abx if concern for infection. - Follow blood cultures drawn in the ED (3) Normocytic anemia: Baseline hgb is ~12.3. Hgb was 7.7 on admission. No signs of bleeding per family (no bruising, no melena). Received last chemo ~1 1/2 weeks ago. is unsure of what the chemotherapy is, though it is sent from [facility] and given at home by the family. Likely combination of anemia of chronic disease, post- operative blood loss, and chemotherapy. - Patient T&S in the ED with the present and agreeing. - Repeat hgb this evening; T&S sent. - Transfusion threshold of 7 for now. - Improved today; will give IV iron x 2 doses. (4) Glaucoma: - Continue home latanoprost (5) Depression: Patient showing apathy right now, but not overtly depressed or expressing self-harm. - Continue venlafaxine (6) Hypertension: BP presently 140/75. - Continue home metoprolol (7) DVT prophylaxis: SCDs - Clear and obvious contraindication to heparin given her GBM and post-operative bleeding Admission and Anticipated Discharge Date Admission Date: December 14, 2019 Subjective Feels better today. More energetic, happier. No focal deficits. Reports no fevers/chills, chest pain, shortness of breath, abdominal pain, nausea, or vomiting. Physical Exam Constitutional: WD/WN, vitals as above Eyes: EOM intact bilaterally; no conjunctival abnormality ENMT: external ear and nose normal, oropharynx normal Neck: trachea midline, no thyromegaly normal visual inspection Respiratory: normal respiratory effort, lungs clear to auscultation no respiratory distress Cardiovascular: RRR, no murmur, no edema Gastrointestinal (Abdomen): Inspection/Auscultation: abdomen normal to inspection; abdomen not distended Musculoskeletal: no cyanosis or clubbing, extremities motor strength 5/5 Skin: no rashes, warm and dry Neurologic: moves all extremities and awake Psychiatric: Orientation: alert, oriented x 3 and cooperative Affect: + blunted affect (Improved.) Cognition: language grossly intact Results & Data Results & Data ([facility]) Vital Signs (Past 12 Hours) Vital Signs Temp Pulse Resp BP Pulse Ox 12/15/19 11:56 36.4 C L 69 18 138/75 99 12/15/19 08:23 37.2 C 67 20 135/73 100 12/15/19 03:38 36.5 C 78 18 140/84 98 PG Care Time/CCT Total # of Minutes Spent Total Time Spent with Patient: Total time spent is greater than 50% in coordination of care (as documented) at patient's floor/unit and/or counseling patient: Coding Level of Care Code 76217 Subseq Hosp Care Lvl 3 Diagnoses GBM (glioblastoma multiforme) C71.9 Confusion R41.0 Normocytic anemia D64.9 Glaucoma H40.9 Depression F33.9 Depression Type: major depressive disorder Major depression recurrence: recurrent Active/Remission status: remission status unspecified Hypertension I10 Hypertension type: essential hypertension DVT prophylaxis Z29.9 (1) Depression Depression Type: major depressive disorder Major depression recurrence: recurrent Active/Remission status: remission status unspecified Qualified Code(s): F33.9 - Major depressive disorder, recurrent, unspecified (2) Hypertension Hypertension type: essential hypertension Qualified Code(s): I10 - Essential (primary) hypertension
[2019-12-15] MEDS: IRON SUCROSE 300 MG in SODIUM CHLORIDE 0.9% 250 ML IV SCH (16:21)
--- NOTE | 2019-12-15 17:26 | Neurology Consultation ---
Date of Consultation December 15, 2019 Assessment & Plan (1) Confusion: Kimmy Henry is a 69 yo woman w/ PMH of anxiety/depression, hyperlipidemia, hypertension, prediabetes, vitamin D deficiency, psoriasis, GERD and GBM diagnosed in May [address] [facility] after increasing confu sara and generalized weakness. # Confusion in the setting of recent craniotomy/GBM resection: could be postoperative delirium versus developing infection in setting of recent surgery and chemotherapy versus medication effect from postoperative narcotics. -Recommend repeating CTH in the AM (or sooner if mental status deteriorates). If repeat CTH stable, no need to repeat daily unless mental status declines. -Low threshold to obtain EEG if any seizure-like activity observed (and continue keppra 500mg bid in that case) -Continue dexamethasone per neurosurgery recommendations -If fever, low threshold to obtain LP to rule out infection -Recommend q4h neurochecks -Delirium precautions, lights on during day, lights off at night, minimize opiates and benzos -Agree with evaluation for postoperative inpatient rehab to help her regain strength Thank you for this interesting consult. Plan of care discussed with primary team. Please call or text with questions. (2) Generalized weakness: (3) GBM (glioblastoma multiforme): (4) Depression: History of Present Illness Attending Physician: Sukhdev Love MD History of Present Illness Kimmy Henry is a 69 yo woman w/ PMH of anxiety/depression, hyperlipidemia, hypertension, prediabetes, vitamin D deficiency, psoriasis, GERD and GBM diagnosed in May [address] [facility] after increasing confusion and generalized weakness. Daughter reports that she was seen at last week and had second awake resection of tumor recurrence on 12/09/2019. She was discharged home on 12/11 despite being recommended for rehab as she did not want to go. The following morning, family noted that she was unable to get out of bed to do any of her activities or even go to the bathroom on her own. We also noted increasing confusion and mild temperature of 99.6 Fahrenheit. Given worsening symptoms, family brought her to the hospital for evaluation. In the ED, patient was afebrile, BP 155/79, heart rate 73, respiratory rate 18, satting 96% on room air. Labs show WBC 7.71, profound anemia with hemoglobin 7.7 which normalized to 8.9, platelets 123, creatinine 0.74, electrolytes within normal, glucose 130, INR 1.0, LFTs within normal, troponin negative, lactate 0.9, UA showed urobilinogen and trace leukoesterase but no signs of infection. Chest x-ray was negative for infection. MCV was noted to be elevated at 97.4, however family notes that her last dose of chemotherapy (Temodar) was approximately 5 weeks ago. Calcium, magnesium, phosphorus are all within normal. Blood culture NGTD. The ED physician did speak with her neurosurgeon Dr. Orona who reports that these findings were not unexpected and recommended repeating imaging and increasing Decadron to 4 mg 4 times a day. He also recommended evaluation for inpatient rehab. Did review the outside neurosurgery note that shows that she had resection, as well as chemotherapy and whole brain radiation in July 2019, with last dose of chemo October 2019. They are awaiting results of the genotyping from resected tissue last week to determine what chemotherapy would be is going forward. On examination today, patient was confused but would follow commands. Family deny any seizures or staring episodes. She was recommended to have Keppra 500 mg twice daily with a stop date of 12/15. Imaging obtained here was reviewed includes CT of head that showed expected postoperative changes with possible hemorrhagic component in the tumor resection bed. Repeat CTH today shows new bilateral trace IVH in the occipital horns. She denied any current headache, numbness, tingling, unilateral weakness, changes in bowel or bladder, vision changes or worsening of her speech. Allergies Allergy/AdvReac Type Severity Reaction Status Date / Time dapsone Allergy Severe Difficulty Verified 12/14/19 16:01 Breathing Penicillins Allergy Unknown HIVES Verified 12/14/19 16:01 Sulfa (Sulfonamide Allergy Unknown HIVES Verified 12/14/19 16:01 Antibiotics) Home Medications Home Medications Medication Instructions Recorded Confirmed Type acetaminophen 325 mg capsule 650 mg PO Q4H PRN cap 06/20/19 12/14/19 History cholecalciferol (vitamin D3) 50 2,000 units PO DAILY 06/20/19 12/14/19 History mcg (2,000 unit) tablet latanoprost 0.005 % eye drops 1 drops OP DAILY ml 06/20/19 12/14/19 History docusate sodium 100 mg capsule 100 mg PO DAILY 07/07/19 12/14/19 History ondansetron HCl 8 mg tablet 8 mg PO DAILY tab 07/07/19 12/14/19 History cetirizine 10 mg capsule 10 mg PO DAILY cap 07/10/19 12/14/19 History venlafaxine 75 mg capsule,extended 75 mg PO DAILY #30 cap 07/11/19 12/14/19 Rx release 24 hr temozolomide 140 mg capsule 130 mg PO .ON HOLD cap 07/14/19 12/14/19 History ascorbic acid (vitamin C) 1,000 mg 1 gm PO DAILY tab 07/28/19 12/14/19 History tablet vitamin B complex 2 cap PO DAILY 07/28/19 12/14/19 History metoprolol succinate 25 mg 25 mg PO HS #90 tab 08/18/19 12/14/19 Rx tablet,extended release 24 hr atorvastatin 40 mg tablet 40 mg PO QPM #90 tab 09/15/19 12/14/19 Rx venlafaxine 150 mg 150 mg PO DAILY #90 cap 09/15/19 12/14/19 Rx capsule,extended release 24 hr omeprazole 20 mg capsule,delayed 20 mg PO DAILY #90 cap 11/17/19 12/14/19 Rx release dexamethasone 4 mg PO .TAPER UD 12/14/19 12/14/19 History levetiracetam [Keppra] 500 mg PO BID 12/14/19 12/14/19 History oxycodone [Roxicodone] 5 mg PO Q6 PRN 12/14/19 12/14/19 History Patient History Medical History Acid reflux Anxiety Arthritis Atypical nevi Chronic sinusitis Depression GBM (glioblastoma multiforme) (Chronic 05/2019) Glaucoma Hyperlipidemia Hypertension Mitral valve prolapse syndrome Normocytic anemia Obsessive compulsive disorder Osteoporosis Prediabetes Psoriasis Seasonal allergies Vitamin D deficiency Surgical History H/O total hysterectomy with bilateral salpingo-oophorectomy (BSO) (1994) History of appendectomy Hx of cataract surgery (2015) Bilateral S/P craniotomy (06/06/19) [place]ani[place] with [place] [facility] [place]) L hip w/ labral debridement, trochanteric bursectomy S/P tonsillectomy Family History Mother , 81yo COPD (chronic obstructive pulmonary disease) Osteoporosis Father , 66yo Cardiac disorder Prostate cancer Myocardial infarction Grandfather (Maternal) Diabetes Son Prediabetes Brother No problems noted. Brother No problems noted. Sister No problems noted. Sister No problems noted. Sister No problems noted. Son Hypertension Daughter No problems noted. 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 Exam (Neuro) Physical Exam: General Exam: GEN: NAD, sitting in bed, scalp incision with kumar in left frontotemporal region, C/D/I. HEENT: No conjunctival injection, no rhinorrhea. CV: RRR, no peripheral edema PULM: Nonlabored respirations on room air. Neuro Exam: MS: Awake and Alert. Oriented to person, place, and not date. Speech mildly nonfluent though without dysarthria or paraphasic errors, +hypophonia. Language intact including naming, comprehension, repetition (mild difficulty with more complex commands). Cognition and memory grossly intact. Attention intact. No neglect. CN: Visual shannon full. No extinction to double simultaneous stimuli. No optic disc edema on fundoscopic exam. PERRLA OU. EOMI without nystagmus. Facial sensation intact to LT. Facial muscles full and symmetric. Hearing intact to con versation. Uvula midline with symmetric palatal elevation. Shoulder shrug normal. Tongue midline. MOTOR: Normal bulk and tone. No pronator drift. BUE strength 5/5 at deltoids, biceps, triceps, wrist flexors and extensors, and hand grasp bilaterally. BLE strength 5/5 at iliopsoas, hamstrings, quadriceps, tibialis anterior, and gastrocnemius bilaterally. REFLEXES: 2+ at biceps, triceps, brachioradialis, 1+ patella and absent Achilles bilaterally. Flexor plantar responses bilaterally. SENSORY: Intact to LT without extinction to double simultaneous stimuli. Vibration intact throughout. COORDINATION: No dysmetria or ataxia on [id number] bilaterally. Normal Adrianna bilaterally. GAIT: deferred given physical status Results & Data ([facility]) Vital Signs (Past 12 Hours) Vital Signs Temp Pulse Resp BP Pulse Ox 12/15/19 15:36 36.8 C 71 20 125/69 100 12/15/19 11:56 36.4 C L 69 18 138/75 99 12/15/19 08:23 37.2 C 67 20 135/73 100 PG Care Time/CCT Total # of Minutes Spent Total Time Spent with Patient: Total time spent is greater than 50% in coordination of care (as documented) at patient's floor/unit and/or counseling patient: Coding Level of Care Code 24497 Initial Inpt Care Lvl 3 Diagnoses Confusion R41.0 Generalized weakness R53.1 GBM (glioblastoma multiforme) C71.9 Depression F33.9 Depression Type: major depressive disorder Major depression recurrence: recurrent Active/Remission status: remission status unspecified (1) Depression Depression Type: major depressive disorder Major depression recurrence: recu rrent Active/Remission status: remission status unspecified Qualified Code(s): F33.9 - Major depressive disorder, recurrent, unspecified
--- NOTE | 2019-12-15 17:53 | Palliative Care Consultation ---
Date of Consultation December 15, 2019 Assessment & Plan (1) Goals of care, counseling/discussion: Patient is a 69-year-old female with a benign past medical history who was diagnosed in May with glioblastoma. Patient underwent resection on June 06. Daughter reports it was a subtotal resection involving the left frontal lobe. Patient underwent chemo and radiation, she was on maintenance chemo when follow-up MRI in October-showed recurrence with an increase in midline shift. Patient underwent awake surgical resection on 12/08 -awake resection allows maximal resection with minimal deficits. Patient was recommended for inpatient rehab postop-patient refused. Patient was discharged home on 12/12. Daughter reports that patient was able to walk in the house and up the stairs when she arrived home Sunday evening, when the daughter went to visit the following day that patient was curled up in bed-refusing to get out of bed and was incontinent. Patient was brought to the emergency room for acute onset of weakness and altered mental status-CT scan showed postop changes with a possible small hemorrhage-Per neurosurgery at [facility], she was admitted for serial CT scans, her Decadron dose was also increased. -CT scans showing minimal hemorrhage-continuing serial CTs -Patient seen and examined, patient's daughter,Devon, at bedside. Family is trying to encourage patient to undergo inpatient rehab therapy to improve her weakness and ambulation. -Patient reluctant to agree to inpatient rehab-did state at the end of the visit that she was agreeable. Will address CODE STATUS at a later date. -Patient has 3 children, 1 daughter and 2 sons, all children live nearby. She also has 4 grandchildren. She is been to her for 51 years-her suffered a stroke 10 years ago and has resultant short-term memory loss. She also has 4 small dogs at home. -Will continue to encourage inpatient rehab prior to returning home. (2) GBM (glioblastoma multiforme): Family aware prognosis. On higher dose Decadron as well as Keppra (3) Confusion: Improved (4) Generalized weakness: Inpatient rehab recommended with PT/OT/DATA SECURITY ANALYST (5) Obsessive compulsive disorder: Also anxiety/depression-currently on Effexor History of Present Illness Reason for Consultation: Discuss goals of care Requesting Physician: Dr. Sukhdev Love Attending Physician: Sukhdev Love MD History of Present Illness Patient is a 69-year-old female with a benign past medical history who was diagnosed in May with glioblastoma. Patient underwent resection on June 06. Daughter reports it was a subtotal resection involving the left frontal lobe. Patient underwent chemo and radiation, she was on maintenance chemo when follow-up MRI in October-showed recurrence with an increase in midline shift. Patient underwent awake surgical resection on 12/08 -awake resection allows maximal resection with minimal deficits. Patient was recommended for inpatient rehab postop-patient refused. Patient was discharged home on 12/12. Daughter reports that patient was able to walk in the house and up the stairs when she arrived home Sunday evening, when the daughter went to visit the following day that patient was curled up in bed-refusing to get out of bed and was incontinent. Patient was brought to the emergency room for acute onset of weakness and altered mental status-CT scan showed postop changes with a possible small hemorrhage-Per neurosurgery at [facility], she was admitted for serial CT scans, her Decadron dose was also increased. -CT scans showing minimal hemorrhage-continuing serial CTs -Patient seen and examined, patient's daughter,Devon, at bedside. Family is trying to encourage patient to undergo inpatient rehab therapy to improve her weakness and ambulation. -Patient reluctant to agree to inpatient rehab-did state at the end of the visit that she was agreeable. Will address CODE STATUS at a later date. -Patient has 3 children, 1 daughter and 2 sons, all children live nearby. She also has 4 grandchildren. She is been to her for 51 years-her suffered a stroke 10 years ago and has resultant short-term memory loss. She also has 4 small dogs at home. -Will continue to encourage inpatient rehab prior to returning home. Allergies Allergy/AdvReac Type Severity Reaction Status Date / Time dapsone Allergy Severe Difficulty Verified 12/14/19 16:01 Breathing Penicillins Allergy Unknown HIVES Verified 12/14/19 16:01 Sulfa (Sulfonamide Allergy Unknown HIVES Verified 12/14/19 16:01 Antibiotics) Home Medications Home Medications Medication Instructions Recorded Confirmed Type acetaminophen 325 mg capsule 650 mg PO Q4H PRN cap 06/20/19 12/14/19 History cholecalciferol (vitamin D3) 50 2,000 units PO DAILY 06/20/19 12/14/19 History mcg (2,000 unit) tablet latanoprost 0.005 % eye drops 1 drops OP DAILY ml 06/20/19 12/14/19 History docusate sodium 100 mg capsule 100 mg PO DAILY 07/07/19 12/14/19 History ondansetron HCl 8 mg tablet 8 mg PO DAILY tab 07/07/19 12/14/19 History cetirizine 10 mg capsule 10 mg PO DAILY cap 07/10/19 12/14/19 History venlafaxine 75 mg capsule,extended 75 mg PO DAILY #30 cap 07/11/19 12/14/19 Rx release 24 hr temozolomide 140 mg capsule 130 mg PO .ON HOLD cap 07/14/19 12/14/19 History ascorbic acid (vitamin C) 1,000 mg 1 gm PO DAILY tab 07/28/19 12/14/19 History tablet vitamin B complex 2 cap PO DAILY 07/28/19 12/14/19 History metoprolol succinate 25 mg 25 mg PO HS #90 tab 08/18/19 12/14/19 Rx tablet,extended release 24 hr atorvastatin 40 mg tablet 40 mg PO QPM #90 tab 09/15/19 12/14/19 Rx venlafaxine 150 mg 150 mg PO DAILY #90 cap 09/15/19 12/14/19 Rx capsule,extended release 24 hr omeprazole 20 mg capsule,delayed 20 mg PO DAILY #90 cap 11/17/19 12/14/19 Rx release dexamethasone 4 mg PO .TAPER UD 12/14/19 12/14/19 History levetiracetam [Keppra] 500 mg PO BID 12/14/19 12/14/19 History oxycodone [Roxicodone] 5 mg PO Q6 PRN 12/14/19 12/14/19 History Patient History Medical History Acid reflux Anxiety Arthritis Atypical nevi Chronic sinusitis Depression GBM (glioblastoma multiforme) (Chronic 05/2019) Glaucoma Hyperlipidemia Hypertension Mitral valve prolapse syndrome Normocytic anemia Obsessive compulsive disorder Osteoporosis Prediabetes Psoriasis Seasonal allergies Vitamin D deficiency Surgical History H/O total hysterectomy with bilateral salpingo-oophorectomy (BSO) (1994) History of appendectomy Hx of cataract surgery (2016) Bilateral S/P craniotomy (06/06/19) Left craniotomy with mass resection, [place] [facility] [place]roscopy (02/25/19) L hip w/ labral debridement, trochanteric bursectomy S/P tonsillectomy Family History Mother , 81yo COPD (chronic obstructive pulmonary disease) Osteoporosis Father , 66yo Cardiac disorder Prostate cancer Myocardial infarction Grandfather (Maternal) Diabetes Son Prediabetes Brother No problems noted. Brother No problems noted. Sister No problems noted. Sister No problems noted. Sister No problems noted. Son Hypertension Daughter No problems noted. 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 She denies fever, chills, chest pain, shortness of breath, or abdominal pain. Positive for 30 pound weight loss Physical Exam Physical Exam: PE: Patient awake and alert, no acute distress HEENT: Left frontal surgical site without erythema or edema, EOMI Respirations: Clear breath sounds CV regular rate, no lower extremity edema Abdomen: Soft, nontender Extremities: Generalized weakness-upper extremities 4+/5, lower extremities 3+/5 Neuro: Alert, positive word finding issues Results & Data Vital Signs (Past 12 Hours) Vital Signs Temp Pulse Resp BP Pulse Ox 12/15/19 15:36 98.2 F 71 20 125/69 100 12/15/19 11:56 97.5 F L 69 18 138/75 99 07/20/20 08:23 99.0 F 67 20 135/73 100 PG Care Time/CCT Total # of Minutes Spent Total Time Spent with Patient: Total time spent 70 minutes with greater than 50% of the time spent at bedside encouraging inpatient rehab, discussing goals of care with patient and daughter, collaborating with attending physician. Coding Level of Care Code 96239 Inpt Consult Level 3 Diagnoses Goals of care, counseling/discussion Z71.89 GBM (glioblastoma multiforme) C71.9 Confusion R41.0 Generalized weakness R53.1 Obsessive compulsive disorder F42.9 Time Spent (min) 70
[2019-12-15] MEDS: ATORVASTATIN 40 MG TAB PO SCH (21:55)
[2019-12-15] MEDS: METOPROLOL SUCC 25MG EXT REL TAB PO SCH (21:55)
[2019-12-16] MEDS: DEXAMETHASONE SOD PHOSPHATE 4 MG in SYRINGE 0 ML IV SCH ×4 (04:49→21:05)
[2019-12-16 06:38] LABS: Hematocrit (blood only) 25.3 % (37-47); Hemoglobin 8.5 g/dL (12.0-16.0); Mean Corpuscular Hemoglobin 32.8 pg (25-34); Mean Corpuscular Hgb Conc 33.6 g/dL (32-36); Mean Corpuscular Volume 97.7 fL (80-100); Mean Platelet Volume 9.5 fL (7.4-10.4); Platelet Count 115 K/uL (130-400); RDW Coefficient of Variation 15.9 % (11.5-14.5); Red Blood Count 2.59 M/uL (4.2-5.4); White Blood Count 8.24 K/uL (4.8-10.8)
[2019-12-16 07:16] LABS: BUN Creatinine Ratio 39.9 (10-20); Calcium 8.6 mg/dl (8.5-10.1); Creatinine Clr Calc Pharmacy 70.1 ml/min; Est GFR (African American) 106.1; Est GFR (Non-African American) 91.5; Magnesium 2.2 mg/dl (1.8-2.4)
[2019-12-16] MEDS: levETIRAcetam 500 MG TAB PO SCH (08:03)
[2019-12-16] MEDS: PANTOprazole 40 MG TAB PO SCH (08:03)
[2019-12-16] MEDS: ASCORBIC ACID 500 MG TAB PO SCH (08:03)
[2019-12-16] MEDS: VITAMIN B COMPLEX TAB PO SCH (08:04)
[2019-12-16] MEDS: LATANOPROST 0.005% OP SOLN 2.5 ML BTL OP SCH (08:04)
--- NOTE | 2019-12-16 09:17 | CT Scan Report ---
CT OF THE HEAD WITHOUT CONTRAST CLINICAL HISTORY: Post-op changes after neurosurgery COMPARISON STUDY: Head CT December 15, 2019. CT DOSE: 537.48 mGy.cm TECHNIQUE: Helical axial images of the head were obtained without IV contrast. Automated exposure con trol was utilized for the study. A dose lowering technique was utilized adhering to the principles o f ALARA. FINDINGS: Findings from recent left frontal craniotomy are noted. A small amount of pneumocephalus is unchanged. The appearance of the resection cavity is similar to prior exam of December 15, 2019 with mul tiple hyperdense foci along the resection cavity that favor hemorrhage. These measure up to 2.4 cm. H ypodensity within left frontal lobe is unchanged. Mass effect is unchanged with compression of the fr ontal horn of the left lateral ventricle and 8 mm of rightward midline shift. Trace intraventricular hemorrhage is noted within the occipital horn the right lateral ventricle. Ventricular system is stab le. Basilar cisterns are patent. A 4 mm hypodense extra-axial collection overlying the left cerebral hemisphere has slightly increased. There are no findings to suggest acute dural sinus thrombosis or a cute territorial infarct. IMPRESSION: 1. Status post recent left frontal craniotomy. No change in appearance of the operative bed with mult iple hyperdense foci along the resection margin of favor hemorrhage. This can be assessed on subseque nt exams to ensure resolution. Stable nonspecific hypodensity within left frontal lobe with unchanged mass effect, including 8 mm of rightward midline shift and mild compression of the frontal horn of t he left lateral ventricle. 2. Trace intraventricular hemorrhage. Stable ventricular size. 3. Interval increase in a small hypodense extra-axial collection overlying the cerebral hemisphere. ACT 112: Negative or not required by law. Electronically signed by: Carmine Gray M.D. 12/16/2019 9:15 AM
[2019-12-16] MEDS: IRON SUCROSE 300 MG in SODIUM CHLORIDE 0.9% 250 ML IV SCH (11:09)
[2019-12-16] MEDS: VENLAFAXINE HCL XR 75 MG CAPXR PO SCH (11:12)
[2019-12-16] MEDS: VENLAFAXINE HCL XR 150 MG CAPXR PO SCH (11:12)
--- NOTE | 2019-12-16 11:35 | Hospitalist Progress Note ---
Date of Service December 16, 2019 Assessment & Plan (1) GBM (glioblastoma multiforme): S/p second resection with Dr. Lukasz Grimaldo at [place]. Just discharged on 12/12/2019 with deterioration the next day. ED provider spoke with Dr. Grimaldo who feels this may be due to post-op swelling/bleeding. Discussed with the patient and family that we do NOT have NSGY at [facility], and therefore there is some risk with remaining here. Patient, , and daughter prefer remaining here for now, acknowledging risks. Compression of brain in setting of postoperative swelling or progression of GBM. Cerebral/Vasogenic edema in setting of postoperative swelling or GBM. - CT head on admission showed nodular hyperdense foci along the periphery of the resection bed with the largest focus measuring 2.5 cm, concerning for hemorrhagic tumor. Discussed with [place] who report this is expected post- operative changes. Images pushed to [place] on 12/[address] Grimaldo. - Continue dexamethasone 4 mg IV Q6h for now - Repeat head CTs on 12/14 & 12/15 have largely been stable apart from some blood in the in the ventricles. Still stable on 12/15. - Continue neuro-checks overnight - Continue Keppra - Palliative care consulted (2) Confusion: Metabolic encephalopathy due to anemia, cerebral edema, and GBM. Likely from post-operative swelling. No indication of focal infection despite patient reporting subjective fever. CXR & UA on admission were both clear. Surgical site looks uninfected. No skin lesions/erythema to suggestion cellulitis. - Monitor closely; start broad spectrum abx if concern for infection. - Would get LP if any fever. - Follow blood cultures drawn in the ED (3) Normocytic anemia: Baseline hgb is ~12.3. Hgb was 7.7 on admission. No signs of bleeding per family (no bruising, no melena). Received last chemo ~1 1/2 weeks ago. is unsure of what the chemotherapy is, though it is sent from [place] and given at home by the family. Likely combination of anemia of chronic disease, post- operative blood loss, and chemotherapy. - Hgb stable/improving to 8.5 today. Getting IV iron x 2 doses. No indication of bleeding inpatient. (4) Glaucoma: - Continue home latanoprost (5) Depression: Patient showing apathy right now, but not overtly depressed or expressing self-harm. - Continue venlafaxine (6) Hypertension: BP presently 150/75. - Continue home metoprolol (7) DVT prophylaxis: SCDs - Clear and obvious contraindication to heparin given her GBM and post-operative bleeding Admission and Anticipated Discharge Date Admission Date: December 14, 2019 Subjective More confused today. Reacts with surprise when I introduce myself. Asks how long I've worked here and that "no one told me you started working here." Otherwise, reports no fevers/chills, chest pain, shortness of breath, abdominal pain, nausea, or vomiting. Physical Exam Constitutional: WD/WN, vitals as above Eyes: EOM intact bilaterally; no conjunctival abnormality ENMT: external ear and nose normal, oropharynx normal Neck: trachea midline, no thyromegaly normal visual inspection Respiratory: normal respiratory effort, lungs clear to auscultation no respiratory distress Cardiovascular: RRR, no murmur, no edema Gastrointestinal (Abdomen): Inspection/Auscultation: abdomen normal to inspection; abdomen not distended Musculoskeletal: no cyanosis or clubbing, extremities motor strength 5/5 Skin: no rashes, warm and dry Neurologic: moves all extremities and awake Psychiatric: Orientation: alert, oriented x 3 and cooperative Affect: + blunted affect (Improved.) Cognition: language grossly intact Results & Data Results & Data ([facility]) Vital Signs (Past 12 Hours) Vital Signs Temp Pulse Resp BP BP Pulse Ox 12/16/19 07:40 36.6 C 74 21 148/80 H 100 12/16/19 03:21 36.5 C 64 16 122/68 97 12/15/19 23:29 36.6 C 66 16 135/71 99 PG Care Time/CCT Total # of Minutes Spent Total Time Spent with Patient: Total time spent is greater than 50% in coordination of care (as documented) at patient's floor/unit and/or counseling patient: Coding Level of Care Code 87442 Subseq Hosp Care Lvl 2 Diagnoses GBM (glioblastoma multiforme) C71.9 Confusion R41.0 Normocytic anemia D64.9 Glaucoma H40.9 Depression F33.9 Depression Type: major depressive disorder Major depression recurrence: recurrent Active/Remission status: remission status unspecified Hypertension I10 Hypertension type: essential hypertension DVT prophylaxis Z29.9 (1) Depression Depression Type: major depressive disorder Major depression recurrence: recurrent Active/Remission status: remission status unspecified Qualified Code(s): F33.9 - Major depressive disorder, recurrent, unspecified (2) Hypertension Hypertension type: essential hypertension Qualified Code(s): I10 - Essential (primary) hypertension
--- NOTE | 2019-12-16 17:58 | Neurology Progress Note ---
Date of Service December 16, 2019 Assessment & Plan (1) Confusion: Kimmy Henry is a 69 yo woman w/ PMH of anxiety/depression, hyperlipidemia, hypertension, prediabetes, vitamin D deficiency, psoriasis, GERD and GBM diagnosed in May 2019 who presented to [facility] after increasing confusion and generalized weakness. # Confusion in the setting of recent craniotomy/GBM resection: could be postoperative delirium versus medication effect from postoperative narcotics, less likely developing infection in setting of recent surgery and chemotherapy -Recommend repeating CTH only if mental status deteriorates or new seizures -Low threshold to obtain EEG if any seizure-like activity observed (and continue keppra 500mg bid in that case) -Continue dexamethasone per neurosurgery recommendations -If fever, low threshold to obtain LP to rule out infection -Recommend q4h neurochecks -Delirium precautions, lights on during day, lights off at night, minimize opiates and benzos -Agree with evaluation for postoperative inpatient rehab to help her regain strength Thank you for this interesting consult. Plan of care discussed with primary team, patient and family. Please call or text with questions. Admission and Anticipated Discharge Date Admission Date: December 14, 2019 Subjective NAEs overnight. Reports increasing depressive symptoms today. Denies any new neurological symptoms. Repeat head CT reviewed and stable from yesterday. Encouraged her to strongly reconsider going to rehab to help her postoperative recovery. Review of Systems Review of Systems: 14 point review of systems completed and negative except as in HPI. Results & Data ([facility]) Vital Signs (Past 12 Hours) Vital Signs Temp Pulse Resp BP BP Pulse Ox 12/16/19 16:24 36.9 C 75 18 120/67 100 12/16/19 11:50 37.0 C 83 17 114/72 100 12/16/19 07:40 36.6 C 74 21 148/80 H 100 Exam (Neuro) Physical Exam: General Exam: GEN: NAD, sitting in bed, scalp incision with kumar in left frontotemporal region, C/D/I. HEENT: No conjunctival injection, no rhinorrhea. CV: RRR, no peripheral edema PULM: Nonlabored respirations on room air. Neuro Exam: MS: Awake and Alert. Oriented to person, place, and not date. Speech mildly nonfluent though without dysarthria or paraphasic errors, +hypophonia. Language intact including naming, comprehension, repetition (mild difficulty with more complex commands). Cognition and memory grossly intact. Attention intact. No neglect. CN: Visual shannon full. No extinction to double simultaneous stimuli. No optic disc edema on fundoscopic exam. PERRLA OU. EOMI without nystagmus. Facial sensation intact to LT. Facial muscles full and symmetric. Hearing intact to conversation. Uvula midline with symmetric palatal elevation. Shoulder shrug normal. Tongue midline. MOTOR: Normal bulk and tone. No pronator drift. BUE strength 5/5 at deltoids, biceps, triceps, wrist flexors and extensors, and hand grasp bilaterally. BLE strength 5/5 at iliopsoas, hamstrings, quadriceps, tibialis anterior, and gastrocnemius bilaterally. REFLEXES: 2+ at biceps, triceps, brachioradialis, 1+ patella and absent Achilles bilaterally. Flexor plantar responses bilaterally. SENSORY: Intact to LT without extinction to double simultaneous stimuli. Vibration intact throughout. COORDINATION: No dysmetria or ataxia on [id number] bilaterally. Normal Adrianna bilaterally. GAIT: deferred given physical status PG Care Time/CCT Total # of Minutes Spent Total Time Spent with Patient: Total time spent is greater than 50% in coordination of care (as documented) at patient's floor/unit and/or counseling patient: Coding Level of Care Code 00568 Subseq Hosp Care Lvl 3 Diagnoses Confusion R41.0
[2019-12-16] MEDS: ATORVASTATIN 40 MG TAB PO SCH (21:05)
[2019-12-16] MEDS: METOPROLOL SUCC 25MG EXT REL TAB PO SCH (21:05)
[2019-12-17] MEDS: DEXAMETHASONE SOD PHOSPHATE 4 MG in SYRINGE 0 ML IV SCH ×2 (03:50→11:27)
[2019-12-17 06:10] LABS: Hematocrit (blood only) 25.7 % (37-47); Hemoglobin 8.8 g/dL (12.0-16.0); Mean Corpuscular Hemoglobin 33.8 pg (25-34); Mean Corpuscular Hgb Conc 34.2 g/dL (32-36); Mean Corpuscular Volume 98.8 fL (80-100); Mean Platelet Volume 9.7 fL (7.4-10.4); Platelet Count 114 K/uL (130-400); RDW Coefficient of Variation 16.2 % (11.5-14.5); RDW Standard Deviation 57.5 fL (36.4-46.3); White Blood Count 7.81 K/uL (4.8-10.8)
[2019-12-17 06:48] LABS: BUN Creatinine Ratio 38.1 (10-20); Calcium 8.6 mg/dl (8.5-10.1); Creatinine Clr Calc Pharmacy 63.8 ml/min; Est GFR (African American) 102.9; Est GFR (Non-African American) 88.8; Potassium 4.3 mmol/L (3.5-5.1)
[2019-12-17] MEDS: ASCORBIC ACID 500 MG TAB PO SCH (08:42)
[2019-12-17] MEDS: VITAMIN B COMPLEX TAB PO SCH (08:43)
[2019-12-17] MEDS: LATANOPROST 0.005% OP SOLN 2.5 ML BTL OP SCH (08:43)
[2019-12-17] MEDS: PANTOprazole 40 MG TAB PO SCH (08:46)
[2019-12-17] MEDS: VENLAFAXINE HCL XR 75 MG CAPXR PO SCH (11:27)
[2019-12-17] MEDS: VENLAFAXINE HCL XR 150 MG CAPXR PO SCH (11:27)
--- NOTE | 2019-12-17 19:43 | Discharge Summary ---
Date of Service December 17, 2019 Admission HPI Per Admitting Provider 69yo F w/ hx of HTN and glioblastoma multiforme s/p 2 resections who presents for lethargy and weakness after being discharged from [facility] after her second resection. She was discharged on Sunday (December 11) in the evening after declining rehab and wanting to go home. Her daughter reports that she was in good spirits at [facility], was aware of her care and surroundings, and was anxious to get home. That evening, she was able to walk up her steps while holding the guardrails. However, the daughter was not able to see her mother at [facility] because they only allow 1 unique visitor per day. The next morning, the daughter stopped by at her mother's house and found her in bed, very frail and weak. She was also incontinent of bowel and bladder. She had become somewhat confused or slow and refused to eat or drink much. For these reasons, the family brought the patient in to the ED. The ED provider got a CT head which showed resection of the left frontal lobe mass, along with nodular hyperdense foci seen along the periphery of the resection bed as described above with the largest focus measuring 2.5 cm, concerning for hemorrhagic tumor. The ED provider spoke with Dr. Lukasz Grimaldo (NSGY at [facility]) who recommended increasing her dexamethasone to 4mg IV Q6h and monitoring with repeat head CTs. Principal Diagnosis Swelling from resection of GBM Discharge Exam Constitutional WD/WN, vitals as above Eyes EOM intact bilaterally; no conjunctival abnormality ENMT external ear and nose normal, oropharynx normal Neck trachea midline, no thyromegaly normal visual inspection Respiratory normal respiratory effort, lungs clear to auscultation no respiratory distress Cardiovascular RRR, no murmur, no edema Gastrointestinal (Abdomen) Inspection/Auscultation: abdomen normal to inspection; abdomen not distended Musculoskeletal no cyanosis or clubbing, extremities motor strength 5/5 Skin no rashes, warm and dry Neurologic moves all extremities and awake Psychiatric Orientation: alert, oriented x 3 and cooperative Affect: + blunted affect (Improved.) Cognition: language grossly intact Discharge Data Allergies Allergy/AdvReac Type Severity Reaction Status Date / Time dapsone Allergy Severe Difficulty Verified 12/14/19 16:01 Breathing Penicillins Allergy Unknown HIVES Verified 12/14/19 16:01 Sulfa (Sulfonamide Allergy Unknown HIVES Verified 12/14/19 16:01 Antibiotics) Consultations 12/14/19 16:03 ED Decision to Admit Stat 12/14/19 17:49 Consult Case Management - Discharge Planning Routine Consult Neurology Routine Consult Palliative Care Routine 12/14/19 18:31 HIM [Consult Health Information Management] Routine Ordered Studies 12/14/19 13:08 CT head/brain wo con Stat 12/15/19 07:15 CT head/brain wo con Routine 12/16/19 08:15 CT head/brain wo con Routine Hospital Course (1) GBM (glioblastoma multiforme): S/p second resection with Dr. Lukasz Grimaldo at [facility]. Just discharged on 12/12/2019 with deterioration the next day. ED provider spoke with Dr. Grimaldo who feels this may be due to post-op swelling/bleeding. Discussed with the patient and family that we do NOT have NSGY at [facility], and therefore there is some risk with remaining here. Patient, , and daughter prefer remaining here for now, acknowledging risks. Compression of brain in setting of postoperative swelling or progression of GBM. Cerebral/Vasogenic edema in setting of postoperative swelling or GBM. - CT head on admission showed nodular hyperdense foci along the periphery of the resection bed with the largest focus measuring 2.5 cm, concerning for hemorrhagic tumor. Discussed with [facility] NS[facility] who report this is expected post- operative changes. Images pushed to [facility] on 12/[address] Grimaldo. - Continue dexamethasone 4 mg IV Q6h for now - Repeat head CTs on 12/14 & 12/15 have largely been stable apart from some blood in the in the ventricles. Still stable on 12/15. - Continue neuro-checks overnight - Continue Keppra - Palliative care consulted - Discharged on steroid taper. All CT head scans were stable. Will follow up with her neurosurgeon at [facility] at normally scheduled time. (2) Confusion: Metabolic encephalopathy due to anemia, cerebral edema, and GBM. Likely from post-operative swelling. No indication of focal infection despite patient reporting subjective fever. CXR & UA on admission were both clear. Surgical site looks uninfected. No skin lesions/erythema to suggestion cellulitis. - Monitor closely; start broad spectrum abx if concern for infection. - Would get LP if any fever. NO FEVER WHILE INPATIENT! - Follow blood cultures drawn in the ED -> No growth at the time of discharge. (3) Normocytic anemia: Baseline hgb is ~12.3. Hgb was 7.7 on admission. No signs of bleeding per family (no bruising, no melena). Received last chemo ~1 1/2 weeks ago. is unsure of what the chemotherapy is, though it is sent from [facility] and given at home by the family. Likely combination of anemia of chronic disease, post- operative blood loss, and chemotherapy. - Hgb stable/improving to 8.8 today. Received IV iron x 2 doses. No indication o f bleeding inpatient. (4) Glaucoma: - Continue home latanoprost (5) Depression: Patient showing apathy right now, but not overtly depressed or expressing self-harm. - Continue venlafaxine (6) Hypertension: BP presently 150/75. - Continue home metoprolol (7) DVT prophylaxis: SCDs - Clear and obvious contraindication to heparin given her GBM and post-operative bleeding Total Time Total Time Spent Total Time Spent (In Minutes): 35 Discharge Plan Discharge Items Patient Disposition: Transfer Inpatient Rehab Fac Reason For Visit: CONFUSION Discharge Diagnosis: Intracranial hemorrhage s/p GBM resection Activity: Resume your previous activity Non-emergency contact: Primary Care Provider and Surgeon Call non-emergency contact if: your pain is worsening Follow-up/Referrals: Libra Connolly DO [Primary Care Provider] - Diet: Regular Addtl Attending Provider Instructions: S/p 2nd resection of GBM by Dr. Lukasz Grimaldo. Patient became more confused, anhedonic after return home. Presented 2 days after discharge from [facility]. CT head on 12/14 showed: 1. Interval development of a small amount of intraventricular hemorrhage within the occipital horns of the lateral ventricles. Therefore, the lobular hyperdense foci along the periphery of the left frontal lobe resection bed favor intracranial hemorrhage. These remain unchanged. Hemorrhagic tumor recurrence is considered less likely but not entirely excluded. Continued [address] follow-up recommended. 2. Postoperative changes consistent with resection of a left frontal lobe lesion. The patient's care was discussed with Dr. Grimaldo who felt these were expected post-operative changes, and that improvement in mental status may take several weeks to improve. Plan for rehab to help with strength. For her dexamethasone taper, I think she could probably re-start the taper as originally planned. She is presently is on dexamethasone 4 mg Q6h. Pending Studies at Discharge: No Stand-Alone Forms: My [facility] Skilled Items Patient informed of condition?: Yes DNR: No Discharge Level of Care: Acute rehab Communicable Disease: No Discharge Prognosis: Improving Lines: None and Peripheral IV Urinary Catheter: No Medications and DC Order Prescriptions: Continued acetaminophen [Tylenol] 325 mg capsule 650 mg PO Q4H PRN (Reason: Pain) RF: 0 cholecalciferol (vitamin D3) 2,000 unit tablet 2,000 units PO DAILY RF: 0 docusate sodium [Colace] 100 mg capsule 100 mg PO DAILY RF: 0 ondansetron HCl [Zofran] 8 mg tablet 8 mg PO DAILY RF: 0 temozolomide [Temodar] 140 mg capsule 130 mg PO .ON HOLD RF: 0 ascorbic acid (vitamin C) 1,000 mg tablet 1 gm PO DAILY RF: 0 vitamin B complex [Vitamins B Complex] Capsule 2 cap PO DAILY RF: 0 venlafaxine 75 mg capsule,extended release 24hr 75 mg PO DAILY Qty: 30 RF: 5 metoprolol succinate 25 mg tablet extended release 24 hr 25 mg PO HS Qty: 90 RF: 1 atorvastatin 40 mg tablet 40 mg PO QPM Qty: 90 RF: 1 venlafaxine [Effexor XR] 150 mg capsule,extended release 24hr 150 mg PO DAILY Qty: 90 RF: 1 omeprazole 20 mg capsule,delayed release(DR/EC) 20 mg PO DAILY Qty: 90 RF: 1 latanoprost 0.005 % drops 1 drops OP DAILY RF: 0 cetirizine 10 mg capsule 10 mg PO DAILY RF: 0 levetiracetam [Keppra] 500 mg tablet 500 mg PO BID RF: 0 dexamethasone 4 mg tablet 4 mg PO .TAPER UD RF: 0 oxycodone [Roxicodone] 5 mg tablet 5 mg PO Q6 PRN (Reason: Pain) RF: 0 Discharge Orders: Discharge Order (Routine); Ordered 12/17/19 Ordered By: Sukhdev Love Admission Data Admit Date/Time: 12/14/19 16:38 Attending Provider: Sukhdev Love Admit Provider: Love,Aurora J. Primary Care Provider: Libra Connolly Other Providers: Sukhdev Love ; Lora Morales ; Laura Rocha ; [facility] Other Interventions: Discharge Summary Assessment (RN) Last Done: 12/17/19 13:24 DC Date/Time DO NOT enter until pt leaves facility: 12/17/19 13:54 Coding Level of Care Code D/C Day Management >30 mins Diagnoses GBM (glioblastoma multiforme) C71.9 Confusion R41.0 Normocytic anemia D64.9 Glaucoma H40.9 Depression F33.9 Depression Type: major depressive disorder Major depression recurrence: recurrent Active/Remission status: remission status unspecified Hypertension I10 Hypertension type: essential hypertension DVT prophylaxis Z29.9
== END 2019-12-17 13:54 | DRG 54 ==
LOC: ED 12:44 → 2E 16:38